=== PATIENT | female | born 1995 | race Caucasian/White ===

== ENCOUNTER 2019-08-01 15:19 | Emergency (ER) | payer OTHER ==
[2019-08-01 15:25] VITALS: BMI 23.8
[2019-08-01] MEDS ORDERED: KETOROLAC TROMETHAMINE 30 MG/1 ML VIAL IVPUSH ONE (15:41)
[2019-08-01] MEDS ORDERED: SODIUM CHLORIDE 1,000 ML IV SCH (15:45)
--- NOTE | 2019-08-01 15:50 | PDOC ---
History of Present Illness - General Chief Complaint: Urinary Problem Stated Complaint: FEVER / UTI Time Seen by Provider: 08/01/19 15:23 History Source: Patient Exam Limitations: No Limitations - History of Present Illness Quality: reports: moderate, sharpness Abdominal Pain Onset Location: reports: flank Past History - Travel Traveled outside of the country in the last 30 days: No Close contact w/someone who was outside of country & ill: No - Past Medical History Allergies/Adverse Reactions: Allergies Allergy/AdvReac Type Severity Reaction Status Date / Time Penicillins Allergy Severe Difficulty Verified 08/01/19 15:24 Breathing NUTS Allergy Swelling Uncoded 08/01/19 15:24 Home Medications: Ambulatory Orders Vitamins (Sjr) - 1 tab PO DAILY 06/21/15 Ibuprofen [Motrin -] 800 mg PO TID #30 tablet 07/17/15 Ciprofloxacin [Cipro -] 500 mg PO Q12H 7 Days #14 tablet 08/01/19 Asthma: No Cancer: No Cardiac Disorders: No COPD: No Diabetes: No HTN: No Seizures: No Thyroid Disease: No - Suicide/Smoking/Psychosocial Hx Smoking Status: No Smoking History: Current every day smoker Have you smoked in the past 12 months: No Number of Cigarettes Smoked Daily: 0 Information on smoking cessation initiated: No Hx Alcohol Use: No Drug/Substance Use Hx: No Substance Use Type: None Hx Substance Use Treatment: No Abd/GI Specific PMHX - Complaint Specific PMHX Colitis: No Review of Systems - Review of Systems Constitutional: Yes: Chills, Fever ABD/GI: No: Abdominal Distended, Diarrhea, Nausea, Vomiting : Yes: Dysuria, Flank Pain. No: Discharge, Frequency, Hematuria, Urgency Musculoskeletal: Yes: Back Pain. No: Joint Pain *Physical Exam - Vital Signs Last Vital Signs Temp Pulse Resp BP Pulse Ox 99.9 F H 120 H 19 120/68 100 08/01/19 15:21 08/01/19 15:21 08/01/19 15:21 08/01/19 15:21 08/01/19 15:21 - Physical Exam General Appearance: Yes: Nourished Respiratory/Chest: positive: Lungs Clear, Normal Breath Sounds Cardiovascular: positive: Regular Rhythm, Regular Rate, S1, S2 Gastrointestinal/Abdominal: positive: Normal Bowel Sounds, Soft Musculoskeletal: positive: CVA Tenderness (R), CVA Tenderness (L) Integumentary: positive: Normal Color Neurologic: positive: photoengraving proofer II-XII NML intact, Fully Oriented, Alert, Normal Mood/ Affect, Normal Response, Motor Strength 03/21 ED Treatment Course - LABORATORY CBC & Chemistry Diagram: 08/01/19 16:05 08/01/19 16:05 Medical Decision Making - Medical Decision Making 08/01/19 15:48 Patient is a 24 years old female with bilateral flank pain left greater than right fever dysuria or for a few days now. Patient reports she was seen at [facility] emergency room over the course of 2wks for UTI. She tx for UTI a week ago, she then presented yesterday for flank pain, she reports she received IV abx for urine infection and was d/c home with po. 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 Denies any nausea vomiting and her last bowel movement was 3 days ago. Patient was consistent with bilateral CVA tenderness left greater than right patient does have mild suprapubic tenderness. concern for pylenonepheritis she is tachycardiac low-grade fever in the ER. Routine labs UA fluids sent 08/01/19 16:00 08/01/19 17:59 pt reassessed after IVF, she feels much better labs reviewed: slightly elevated wbc at 11K, cr ok, pt stable vss improved, pain resolved cipro given d/c with instruction to f/u urology *DC/Admit/Observation/Transfer Diagnosis at time of Disposition: Pyelonephritis - Discharge Dispostion Disposition: HOME Condition at time of disposition: Stable - Prescriptions Prescriptions: Ciprofloxacin [Cipro -] 500 mg PO Q12H 7 Days #14 tablet - Referrals Referrals: Molly Kauffman SGingerAGinger [Other Staff,non-medical] - - Patient Instructions Printed Discharge Instructions: DI for Kidney Infection Additional Instructions: Please follow-up urology, increase fluids Please finish antibiotics as prescribed Return to the emergency room if worsening symptoms occurs. - Post Discharge Activity Forms/Work/School Notes: Back to Work
[2019-08-01] MEDS ORDERED: KETOROLAC TROMETHAMINE 30 MG/1 ML VIAL ONE (16:04)
[2019-08-01 16:05] LABS: EPI CELLS 7.1 /HPF (0-5/HPF); HYALINE CASTS 93 /lpf (0-8); PH,URINE 6.5 (5.0-8.0); URINE APPEARANCE CLOUDY; URINE BACTERIA 149.9 /hpf (NEGATIVE); URINE BILIRUBIN NEGATIVE (NEGATIVE); URINE COLOR YELLOW; URINE GLUCOSE (UA) NEGATIVE (NEGATIVE); URINE KETONE NEGATIVE (NEGATIVE); URINE LEUK ESTERASE 2+ (NEGATIVE); URINE NITRITE NEGATIVE (NEGATIVE); URINE PROTEIN 1+ (NEGATIVE); URINE WBC 151 /hpf (0-5)
[2019-08-01 16:12] LABS: HEMATOCRIT 36.5 % (32.4-45.2); HEMOGLOBIN 12.3 GM/dL (10.7-15.3); MCH 30.3 pg (25.7-33.7); MCHC 33.7 g/dl (32.0-36.0); MEAN CELL VOLUME 90.2 fl (80-96); MEAN PLT VOLUME 8.3 fl (7.5-11.1); PLATELET COUNT 211 K/MM3 (134-434); RBC 4.05 M/mm3 (3.60-5.2); RDW 11.9 % (11.6-15.6); WHITE BLOOD COUNT 11.4 K/mm3 (4.0-10.0)
[2019-08-01 16:46] LABS: ALBUMIN 3.4 g/dl (3.4-5.0); BILIRUBIN,TOTAL 0.5 mg/dL (0.2-1); CALCIUM 8.3 mg/dL (8.5-10.1); CREATININE 0.8 mg/dL (0.55-1.3); POTASSIUM 3.8 mmol/L (3.5-5.1); TOT PROT 6.9 g/dl (6.4-8.2)
[2019-08-01 17:24] VITALS: BP 126/61; PULSE 89; TEMP 98.6
[2019-08-01] MEDS ORDERED: CIPROFLOXACIN 500 MG TABLET (RESTRICTED TO ID) PO ONE (17:27)
[2019-08-01 17:58] LABS: URINE RBC 16.5 /hpf (0-4); YEAST NONE SEEN (NEGATIVE)
== END 2019-08-01 17:57 | disposition home or self-care (01) ==
LOC: JERFT 15:19
PROC: 3E0337Z Introduction of Electrolytic and Water Balance Substance into Peripheral Vein, Percutaneous Approach (ICD-10-PCS; principal; 2019-08-01)
PROC: 3E0333Z Introduction of Anti-inflammatory into Peripheral Vein, Percutaneous Approach (ICD-10-PCS; 2019-08-01)
DX: N12 Tubulo-interstitial nephritis, not specified as acute or chronic (principal)
CPT/HCPCS: 36415; 80053; 81003; 84703; 85027; 87086; 96361; 96374; 99282-25; J7030

== ENCOUNTER 2019-08-03 13:05 | Emergency (ER) | payer OTHER ==
[2019-08-03 13:15] VITALS: BP 125/71; PULSE 71; TEMP 98.4; BMI 23.8
[2019-08-03] MEDS ORDERED: KETOROLAC TROMETHAMINE 30 MG/1 ML VIAL IVPUSH ONE (14:57)
[2019-08-03] MEDS ORDERED: ONDANSETRON 4 MG/2 ML VIAL IVPUSH ONE (14:57)
[2019-08-03] MEDS ORDERED: PANTOPRAZOLE SODIUM 40 MG in SODIUM CHLORIDE 100 ML IVPB ONE (14:57)
[2019-08-03] MEDS ORDERED: SODIUM CHLORIDE 1,000 ML IV STA (14:58)
[2019-08-03] MEDS ORDERED: KETOROLAC TROMETHAMINE 30 MG/1 ML VIAL ONE (15:01)
[2019-08-03] MEDS ORDERED: ONDANSETRON 4 MG/2 ML VIAL ONE (15:02)
[2019-08-03] MEDS ORDERED: PANTOPRAZOLE SODIUM 40 MG VIAL ONE (15:02)
[2019-08-03 15:20] LABS: BASO % 0.7 % (0-2.0); EOS % 1.6 % (0-4.5); HEMATOCRIT 37.5 % (32.4-45.2); HEMOGLOBIN 12.8 GM/dL (10.7-15.3); LYMPH % 24.6 % (8-40); MCHC 34.2 g/dl (32.0-36.0); MEAN CELL VOLUME 90.6 fl (80-96); MEAN PLT VOLUME 9.4 fl (7.5-11.1); MONO % 14.7 % (3.8-10.2); NEUT % 58.4 % (42.8-82.8); PLATELET COUNT 271 K/MM3 (134-434); RBC 4.14 M/mm3 (3.60-5.2); RDW 12.2 % (11.6-15.6); WHITE BLOOD COUNT 8.3 K/mm3 (4.0-10.0)
[2019-08-03 16:01] LABS: BILIRUBIN,TOTAL 0.4 mg/dL (0.2-1); BLOOD UREA NITROGEN 7.4 mg/dL (7-18); CALCIUM 9.6 mg/dL (8.5-10.1); CREATININE 0.7 mg/dL (0.55-1.3); MAGNESIUM 2.3 mg/dL (1.8-2.4); POTASSIUM 3.9 mmol/L (3.5-5.1); TOT PROT 8.2 g/dl (6.4-8.2)
--- NOTE | 2019-08-03 16:06 | PDOC ---
History of Present Illness - General Chief Complaint: Pain Stated Complaint: ABD PAIN Time Seen by Provider: 08/03/19 13:24 History Source: Patient Exam Limitations: No Limitations - History of Present Illness Travel History: No Initial Comments: 08/03/19 15:09 24 y/o female presents to the ED with n/v and upper abd sharp pain x 4 days. Pt denies fever, headache, chills, diarrhea, or recent travel. Pt states seen here 2 days ago and placed on cipro for uti. pt states unable to tolerate solids but able to drink fluids. Pt states smokes marijuana daily and denies previous s/s Timing/Duration: reports: constant Quality: reports: moderate, sharpness Abdominal Pain Onset Location: reports: epigastric Pain Radiation: reports: no radiation Activities at Onset: reports: none Aggravating Factors: improves with: None Alleviating Factors: improves with: None Past History - Travel Traveled outside of the country in the last 30 days: No Close contact w/someone who was outside of country & ill: No - Past Medical History Allergies/Adverse Reactions: Allergies Allergy/AdvReac Type Severity Reaction Status Date / Time Penicillins Allergy Severe Difficulty Verified 08/01/19 15:24 Breathing NUTS Allergy Swelling Uncoded 08/01/19 15:24 Home Medications: Ambulatory Orders Vitamins (Sjr) - 1 tab PO DAILY 06/21/15 Ibuprofen [Motrin -] 800 mg PO TID #30 tablet 07/17/15 Ciprofloxacin [Cipro -] 500 mg PO Q12H 7 Days #14 tablet 08/01/19 Asthma: No Cancer: No Cardiac Disorders: No COPD: No Diabetes: No HTN: No Seizures: No Thyroid Disease: No - Suicide/Smoking/Psychosocial Hx Smoking Status: No Smoking History: Never smoked Have you smoked in the past 12 months: No Number of Cigarettes Smoked Daily: 0 Information on smoking cessation initiated: No Hx Alcohol Use: No Drug/Substance Use Hx: No Substance Use Type: None Hx Substance Use Treatment: No Patient Lives Alone: No Lives with/in: parents Abd/GI Specific PMHX - Complaint Specific PMHX Colitis: No Review of Systems - Review of Systems Able to Perform ROS?: Yes Constitutional: Yes: Weakness (mild generalized) Respiratory: Yes: Cough ABD/GI: Yes: Nausea, Vomiting, Abdominal cramping. No: Poor Appetite, Poor Fluid Intake, Indigestion Musculoskeletal: No: Symptoms Reported Integumentary: No: Symptoms Reported Neurological: No: Symptoms reported Hematologic/Lymphatic: No: Symptoms Reported *Physical Exam - Vital Signs Last Vital Signs Temp Pulse Resp BP Pulse Ox 98.4 F 71 16 125/71 100 08/03/19 13:14 08/03/19 13:14 08/03/19 13:14 08/03/19 13:14 08/03/19 13:14 - Physical Exam General Appearance: Yes: Nourished, Appropriately Dressed. No: Apparent Distress HEENT: positive: EOMI, JONATHAN, TMs Normal, Pharynx Normal. negative: Pale Conjunctivae Neck: positive: Normal Thyroid, Supple Respiratory/Chest: positive: Lungs Clear, Normal Breath Sounds. negative: Respiratory Distress, Accessory Muscle Use Cardiovascular: positive: Regular Rhythm, Regular Rate. negative: Murmur Gastrointestinal/Abdominal: positive: Soft, Tenderness (luq/epigastric/ruq) Musculoskeletal: negative: CVA Tenderness Extremity: positive: Normal Inspection Integumentary: positive: Normal Color, Warm, Moist Neurologic: positive: Normal Mood/Affect (anxious), Motor Strength 5/5 ( ambulatory) ED Treatment Course - LABORATORY CBC & Chemistry Diagram: 08/03/19 15:14 08/03/19 15:14 - ADDITIONAL ORDERS Additional order review: 08/03/19 15:14 RBC 4.14 MCV 90.6 MCHC 34.2 RDW 12.2 MPV 9.4 D Neutrophils % 58.4 Lymphocytes % 24.6 Monocytes % 14.7 H Eosinophils % 1.6 Basophils % 0.7 - RADIOLOGY Radiology Studies Ordered: Category Date Time Status ABDOMEN US -LIMITED [US] Stat Ultrasound 08/03/19 14:58 Ordered - Medications Given in the ED: ED Medications Discontinued Medications Generic Name Dose Route Start Last Admin Trade Name Freq PRN Reason Stop Dose Admin Pantoprazole Sodium 40 mg/ 100 mls @ 200 mls/hr 08/03/19 14:57 08/03/19 15:11 Sodium Chloride IVPB 08/03/19 15:26 200 mls/hr ONCE ONE Administration Sodium Chloride 1,000 mls @ 1,000 mls/hr 08/03/19 14:58 08/03/19 15:11 Normal Saline - IV 08/03/19 15:57 1,000 mls/hr ASDIR STA Administration Ketorolac Tromethamine 30 mg 08/03/19 14:57 08/03/19 15:11 Toradol Injection - IVPUSH 08/03/19 14:58 30 mg ONCE ONE Administration Ondansetron HCl 4 mg 08/03/19 14:57 08/03/19 15:11 Zofran Injection IVPUSH 08/03/19 14:58 4 mg ONCE ONE Administration Medical Decision Making - Medical Decision Making 08/03/19 15:10 CC: upper abdominal pain for the past few days associated nausea and vomiting and poor solid intake. Exam. Patient with left upper quadrant epigastric and right upper quadrant tenderness. Vital signs stable. Plan labs, urine, antiemetics, Toradol, IV fluids and ultrasound of the abdomen ordered 08/03/19 16:12 Laboratory Tests 08/03/19 08/03/19 15:14 15:14 WBC 8.3 Hgb 12.8 Hct 37.5 Neutrophils % 58.4 Lymphocytes % 24.6 Monocytes % 14.7 H Sodium 140 Potassium 3.9 Chloride 106 Carbon Dioxide 26 Anion Gap 9 BUN 7.4 Creatinine 0.7 Random Glucose 83 Calcium 9.6 Magnesium 2.3 Total Bilirubin 0.4 AST 26 ALT 24 Alkaline Phosphatase 71 Total Protein 8.2 Albumin 4.0 Lipase 46 L 08/03/19 17:11 Ultrasound shows no acute findings. Patient states feeling better. Urine pending. 08/03/19 17:45 Patient requesting to go home. Will call patient with results of urine. Patient also requesting something for nausea and upper abdominal pain. Patient be prescribed Zofran and protonix along receiving a work note. *DC/Admit/Observation/Transfer Diagnosis at time of Disposition: Epigastric abdominal pain - Discharge Dispostion Disposition: HOME Condition at time of disposition: Improved - Referrals - Patient Instructions Printed Discharge Instructions: DI for Epigastric Pain Additional Instructions: Take Protonix as prescribed starting tomorrow and zofran as needed starting tonight Please avoid spicy greasy and fried food at this may aggravate your symptoms. Please avoid smoking of all kind. Return to ED if symptoms worsen - Post Discharge Activity Forms/Work/School Notes: Back to Work
[2019-08-03 18:12] LABS: EPI CELLS 9.6 /HPF (0-5/HPF); HYALINE CASTS 12 /lpf (0-8); PH,URINE 8.5 (5.0-8.0); URINE APPEARANCE CLEAR; URINE BACTERIA 74.9 /hpf (NEGATIVE); URINE BILIRUBIN NEGATIVE (NEGATIVE); URINE COLOR YELLOW; URINE GLUCOSE (UA) NEGATIVE (NEGATIVE); URINE KETONE NEGATIVE (NEGATIVE); URINE LEUK ESTERASE 1+ (NEGATIVE); URINE NITRITE NEGATIVE (NEGATIVE); URINE PROTEIN NEGATIVE (NEGATIVE); URINE RBC 5 /hpf (0-4); URINE UROBILINOGEN 0.2 mg/dL (0.2-1.0); URINE WBC 16 /hpf (0-5)
== END 2019-08-03 17:51 | disposition home or self-care (01) ==
LOC: JER 13:05
PROC: 3E033GC Introduction of Other Therapeutic Substance into Peripheral Vein, Percutaneous Approach (ICD-10-PCS; principal; 2019-08-03)
PROC: 3E0333Z Introduction of Anti-inflammatory into Peripheral Vein, Percutaneous Approach (ICD-10-PCS; 2019-08-03)
PROC: 3E033GC Introduction of Other Therapeutic Substance into Peripheral Vein, Percutaneous Approach (ICD-10-PCS; 2019-08-03)
DX: R10.10 Upper abdominal pain, unspecified (principal); Z87.440 Personal history of urinary (tract) infections; Z79.2 Long term (current) use of antibiotics
CPT/HCPCS: 36415; 76705-TC; 80053; 81003; 83690; 83735; 85025; 87077; 87086; 96365; 96375; 99281-25; J7030

== ENCOUNTER 2020-01-08 18:12 | Emergency (ER) | payer OTHER ==
[2020-01-08 18:23] VITALS: BP 120/70; PULSE 104; TEMP 97.8; BMI 23.8
--- NOTE | 2020-01-08 20:34 | PDOC ---
History of Present Illness - General Chief Complaint: Pain Stated Complaint: 7 WEEKS /PAIN/DIZZY Time Seen by Provider: 01/08/20 19:24 History Source: Patient Exam Limitations: No Limitations Past History - Past Medical History Allergies/Adverse Reactions: Allergies Allergy/AdvReac Type Severity Reaction Status Date / Time Penicillins Allergy Severe Difficulty Verified 08/01/19 15:24 Breathing NUTS Allergy Swelling Uncoded 08/01/19 15:24 Home Medications: Ambulatory Orders Vitamins (Sjr) - 1 tab PO DAILY 06/21/15 Ibuprofen [Motrin -] 800 mg PO TID #30 tablet 07/17/15 Ciprofloxacin [Cipro -] 500 mg PO Q12H 7 Days #14 tablet 08/01/19 Ondansetron HCl [Zofran] 4 mg PO TID PRN #12 tablet 08/03/19 Pantoprazole Sodium [Protonix] 40 mg PO DAILY #30 tablet. 08/03/19 Asthma: No Cancer: No Cardiac Disorders: No COPD: No Diabetes: No HTN: No Seizures: No Thyroid Disease: No - Psycho Social/Smoking Cessation Hx Smoking Status: No Smoking History: Never smoked Have you smoked in the past 12 months: No Number of Cigarettes Smoked Daily: 0 Information on smoking cessation initiated: No Hx Alcohol Use: No Drug/Substance Use Hx: No Substance Use Type: None Hx Substance Use Treatment: No *Physical Exam - Vital Signs Last Vital Signs Temp Pulse Resp BP Pulse Ox 97.8 F 104 H 18 120/70 100 01/08/20 18:16 01/08/20 18:16 01/08/20 18:16 01/08/20 18:16 01/08/20 18:16 - Physical Exam General Appearance: No: Apparent Distress Respiratory/Chest: positive: Lungs Clear, Normal Breath Sounds. negative: Respiratory Distress Cardiovascular: positive: Regular Rhythm, Regular Rate, S1, S2. negative: Murmur Gastrointestinal/Abdominal: positive: Normal Bowel Sounds, Soft. negative: Tender, Distended, Guarding, Rebound Neurologic: positive: Alert ED Treatment Course - RADIOLOGY Radiology Studies Ordered: Category Date Time Status <14WKS US [US] Stat Ultrasound 01/08/20 19:29 Ordered Medical Decision Making - Medical Decision Making 24 y/o F with no sig pmh , currently 7 weeks , presents with pelvic cramps from yesterday. Denies fever, sob, cp, abd pain, n/v/d, urinary sxs, vaginal bleeding. R/O ectopic Patient was pending to have labs drawn when she was noted by nurse to have eloped the ED 01/08/20 20:34 Discharge - Discharge Information Problems reviewed: Yes Clinical Impression/Diagnosis: Pelvic pain Disposition: ELOPED - Follow up/Referral - Patient Discharge Instructions - Post Discharge Activity
== END 2020-01-08 20:45 | disposition left against medical advice (07) ==
LOC: JER 18:12
DX: O26.891 Other specified pregnancy related conditions, first trimester (principal); R10.2 Pelvic and perineal pain; Z3A.01 Less than 8 weeks gestation of pregnancy
CPT/HCPCS: 99281-25

== ENCOUNTER 2020-01-15 11:51 | Emergency (ER) | payer OTHER ==
[2020-01-15 12:19] VITALS: TEMP 97.9; BMI 23.8
[2020-01-15] MEDS ORDERED: SODIUM CHLORIDE 1,000 ML IV STA (13:15)
--- NOTE | 2020-01-15 14:10 | PDOC ---
History of Present Illness - General Chief Complaint: Vaginal Bleeding Stated Complaint: DIZINESS, VOMITING Time Seen by Provider: 01/15/20 13:03 History Source: Patient - History of Present Illness Initial Comments: 01/15/20 14:02 Ms. Pineda is a 24 y/o woman at 8 weeks gestation by LMP not yet confirmed by US w/no PMH p/w three weeks of weakness, lightheadedness. She reports that for the last several weeks she has noted worsening lightheadedness with ambulation, worse when going from sitting to standing position. She denies any syncope, near syncope, chest pain, shortness of breath. She denies any complications during her first . She has not seen an slat grader during this and does not have a PCP. She reports 1x nbnb vomiting today and a small amount of vaginal spotting afterwards. She denies any abdominal or pelvic pain or discomfort, or dysuria/hematuria/change in urination. Past History - Past Medical History Allergies/Adverse Reactions: Allergies Allergy/AdvReac Type Severity Reaction Status Date / Time Penicillins Allergy Severe Difficulty Verified 01/15/20 12:19 Breathing NUTS Allergy Swelling Uncoded 01/15/20 12:19 Home Medications: Ambulatory Orders Vitamins (Sjr) - 1 tab PO DAILY 06/21/15 Asthma: No Cancer: No Cardiac Disorders: No COPD: No Diabetes: No HTN: No Seizures: No Thyroid Disease: No - Reproductive History Is Patient Now?: Yes (#): 2 Para: 1 - Psycho Social/Smoking Cessation Hx Smoking Status: No Smoking History: Never smoked Have you smoked in the past 12 months: No Number of Cigarettes Smoked Daily: 0 Hx Alcohol Use: No Drug/Substance Use Hx: No Substance Use Type: None Hx Substance Use Treatment: No Review of Systems - Review of Systems Able to Perform ROS?: Yes Comments:: 01/15/20 14:10 ROS: GENERAL/CONSTITUTIONAL: No fever or chills. No weakness. HEAD, EYES, EARS, NOSE AND THROAT: No change in vision. No ear pain or discharge. No sore throat. CARDIOVASCULAR: No chest pain or shortness of breath RESPIRATORY: No cough, wheezing, or hemoptysis. GASTROINTESTINAL: No nausea, vomiting, diarrhea or constipation. GENITOURINARY: No dysuria, frequency, or change in urination. MUSCULOSKELETAL: No joint or muscle swelling or pain. No neck or back pain. SKIN: No rash NEUROLOGIC: Lightheadedness. No headache, vertigo, loss of consciousness, or change in strength/sensation. ENDOCRINE: No increased thirst. No abnormal weight change HEMATOLOGIC/LYMPHATIC: No anemia, easy bleeding, or history of blood clots. ALLERGIC/IMMUNOLOGIC: No hives or skin allergy. *Physical Exam - Vital Signs Last Vital Signs Temp Pulse Resp BP Pulse Ox 97.9 F 83 16 97/63 97 01/15/20 12:17 01/15/20 12:17 01/15/20 12:17 01/15/20 12:17 01/15/20 12:17 - Physical Exam 01/15/20 14:11 PE: GENERAL: Awake, alert, and fully oriented, in no acute distress HEAD: No signs of trauma, normocephalic, atraumatic EYES: PERRLA, EOMI, sclera anicteric, conjunctiva clear ENT: Auricles normal inspection, hearing grossly normal, nares patent, oropharynx clear without exudates. Moist mucosa NECK: Normal ROM, supple, no lymphadenopathy, JVD, or masses LUNGS: No distress, speaks full sentences, clear to auscultation bilaterally HEART: Regular rate and rhythm, normal S1 and S2, no murmurs, rubs or gallops, peripheral pulses normal and equal bilaterally. ABDOMEN: Soft, nontender, normoactive bowel sounds. No guarding, no rebound. No masses EXTREMITIES : Normal inspection, Normal range of motion, no edema. No clubbing or cyanosis NEUROLOGICAL: Cranial nerves II through XII grossly intact. Normal speech, normal gait, no focal sensorimotor deficits SKIN: Warm, Dry, normal turgor, no rashes or lesions noted ED Treatment Course - LABORATORY CBC & Chemistry Diagram: 01/15/20 14:10 01/15/20 14:10 Medical Decision Making - Medical Decision Making 01/15/20 14:11 24F @ 8 weeks gestation by LMP p/w lightheadedness for 3-4 weeks. Ddx includes anemia, electrolyte derangement given weakness. Ectopic also possible given pelvic pain, although pain is mild and intermittent. Plan: CBC CMP UA Urine culture Beta hcg quant Type and screen Abdominal US bedside US formal Dispo: Discharge 01/15/20 14:14 Discharge - Discharge Information Problems reviewed: Yes Clinical Impression/Diagnosis: Vaginal bleeding Condition: Stable Disposition: HOME - Admission No - Follow up/Referral Referrals: Spencer Ching MD [Staff Physician] - - Patient Discharge Instructions Patient Printed Discharge Instructions: DI for Threatened Additional Instructions: You were seen in the ER for vaginal bleeding and lightheadedness. Your bloodwork was normal. Your ultrasound showed a small amount of blood in the uterus. The heart rate was 115 - slower than we would expect at this stage, as discussed. Please be sure to follow up with slat grader as soon as possible, in the next 2-3 days. Please return to the ER if you develop fevers, bleeding more than 4 pads in one hour, chest pain, shortness of breath, weakness. - Post Discharge Activity Work/Back to School Note: Back to Work
[2020-01-15 14:25] LABS: BASO % 0.3 % (0-2.0); EOS % 1.8 % (0-4.5); HEMATOCRIT 36.2 % (32.4-45.2); HEMOGLOBIN 12.7 GM/dL (10.7-15.3); LYMPH % 20.6 % (8-40); MEAN CELL VOLUME 88.6 fl (80-96); MONO % 8.1 % (3.8-10.2); NEUT % 69.2 % (42.8-82.8); PLATELET COUNT 270 K/MM3 (134-434); RBC 4.09 M/mm3 (3.60-5.2); RDW 12.5 % (11.6-15.6); WHITE BLOOD COUNT 10.8 K/mm3 (4.0-10.0)
--- NOTE | 2020-01-15 14:43 | PDOC ---
Documentation entered by Julio César Cary SCRIBE, acting as scribe for Karan Cason MD. Karan Cason MD: This documentation has been prepared by the Luis Daniel hendricks Daniel, SCRIBE, under my direction and personally reviewed by me in its entirety. I confirm that the documentation accurately reflects all work, treatment, procedures, and medical decision making performed by me. Attending Attestation - Resident Resident Name: JeanniereeseMikel - ED Attending Attestation I have performed the following: I have examined & evaluated the patient, The case was reviewed & discussed with the resident, I agree w/resident's findings & plan, Exceptions are as noted - HPI HPI: 01/15/20 14:27 The patient is a 24 year old female with no past medical history here today for evaluation of vaginal spotting. The patient reports that she noticed 3-4 drops of blood in her underwear today and that she is 8 weeks by LMP. She also reports that she has had 3-4 weeks of intermittent pelvic cramping that feels like her menstrual pain and lightheadedness that is worse on exertion. She also states that she hasn't had an ultrasound to confirm her . Patient denies headache. Denies fever, chills. Denies chest pain, shortness of breath. Denies nausea, vomiting, diarrhea, abdominal pain. Allergies: penicillins, nuts - Physicial Exam PE: 01/15/20 14:31 Vitals: Triage vital signs reviewed General Appearance: No acute distress, well nourished, well developed Head: Atraumatic Neck: Supple; No nuchal rigidity Chest Wall: Nontender Cardiac: Regular rate and rhythm, no murmurs, no rubs, no gallops Lungs: Clear to auscultation bilateral, good air movement bilaterally Abdomen: Soft, nondistended, normal bowel sounds, nontender to palpation Extremities: Full range of motion to all extremities, no cyanosis, clubbing, or edema Skin: Warm and dry, no rashes or lesions, no rash, no petechiae Neuro: AOX3 Psych: Normal mood, normal affect - Medical Decision Making 01/15/20 16:39 History and examination consistent with threatened findings discussed with patient 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
[2020-01-15 14:54] LABS: ALBUMIN 3.5 g/dl (3.4-5.0); BILIRUBIN,TOTAL 0.3 mg/dL (0.2-1); BLOOD UREA NITROGEN 11.1 mg/dL (7-18); CALCIUM 8.5 mg/dL (8.5-10.1); CREATININE 0.5 mg/dL (0.55-1.3); POTASSIUM 3.6 mmol/L (3.5-5.1); TOT PROT 7.1 g/dl (6.4-8.2)
[2020-01-15 17:27] VITALS: BP 124/76; PULSE 80
== END 2020-01-15 17:27 | disposition home or self-care (01) ==
LOC: JER 11:51
PROC: 3E0337Z Introduction of Electrolytic and Water Balance Substance into Peripheral Vein, Percutaneous Approach (ICD-10-PCS; principal; 2020-01-15)
DX: O26.891 Other specified pregnancy related conditions, first trimester (principal); O20.0 Threatened abortion; Z3A.01 Less than 8 weeks gestation of pregnancy
CPT/HCPCS: 36415; 76830-TC; 80053; 84702; 85025; 86850; 86900; 86901; 96360; 99284-25; J7030

== ENCOUNTER 2020-05-18 21:29 | Emergency (ER) | payer OTHER ==
[2020-05-18 21:34] VITALS: BP 112/69; PULSE 99; TEMP 99; BMI 26.2
[2020-05-18] MEDS ORDERED: LIDOCAINE HCL 2% JELLY 10 ML CARTRIDGE ONE (23:29)
[2020-05-18] MEDS ORDERED: LIDOCAINE HCL 5% TOP OINTMENT 50 GM TUBE TP ONE (23:31)
[2020-05-18] MEDS ORDERED: AMOX TR/POT CLAV 875MG/125MG TABLETS (FP) PO ONE (23:31)
[2020-05-18] MEDS ORDERED: AMOX TR/POT CLAV 875MG/125MG TABLETS (FP) ONE (23:32)
--- NOTE | 2020-05-18 23:35 | PDOC ---
History of Present Illness - General Chief Complaint: Abscess Boil Stated Complaint: VAGINAL ABSCESS/24 WKS PREG Time Seen by Provider: 05/18/20 23:06 History Source: Patient Exam Limitations: Clinical Condition - History of Present Illness Initial Comments: 05/18/20 23:38 Patient 24 weeks with no significant past medical history present with complaint of 3 days history of abscess and pain to skin of right groin area by mons pubis. Patient reported history of ingrown hair which improved by itself but now has been having worsening symptoms and has been doing hot compresses for the past day which has not been having much improvement. Denies fever, chills, vaginal discharge, dysuria, burning urination. Denies any other symptoms Timing/Duration: reports: other (3 days) Past History - Medical History Allergies/Adverse Reactions: Allergies Allergy/AdvReac Type Severity Reaction Status Date / Time NUTS Allergy Swelling Uncoded 05/18/20 21:34 Home Medications: Ambulatory Orders Vitamins (Sjr) - 1 tab PO DAILY 06/21/15 Acetaminophen [Tylenol -] 1,000 mg PO Q6H #30 tablet 02/20/20 Metoclopramide HCl [Reglan] 10 mg PO Q8H #12 tablet 02/20/20 Amox-Tr/K Cl [Augmentin - 875Mg Tablet] 1 tab PO BID #14 tablet 05/18/20 Mupirocin Ointment [Bactroban 2% Ointment -] 1 applic TP BID #1 tube 05/18/20 Asthma: No Cancer: No Cardiac Disorders: No COPD: No Diabetes: No HTN: No Seizures: No Thyroid Disease: No - Reproductive History (#): 2 Para: 1 - Psycho-Social/Smoking History Smoking Status: No Smoking History: Never smoked Have you smoked in the past 12 months: No Number of Cigarettes Smoked Daily: 0 - Substance Abuse Hx (Audit-C & DAST Scrn) How often the patient has a drink containing alcohol: Never Score: In Men: 4 or > Positive; In Women: 3 or > Positive: 0 Screen Result (Pos requires Nsg. Audit-10AR): Negative In the last yr the pt used illegal drug/Rx for NonMed reason: No Score: Yes response is considered Positive: 0 Screen Result (Positive result requires Nsg. DAST-10): Negative Review of Systems - Review of Systems Able to Perform ROS?: Yes Is the patient limited Pakistani proficient: No Constitutional: No: Chills, Fever, Malaise HEENTM: No: Symptoms Reported, See HPI, Eye Pain, Blurred Vision, Tearing, Recent change in vision, Double Vision, Cataracts, Ear Pain, Ocular Prothesis, Ear Discharge, Nose Pain, Nose Congestion, Tinnitus, Nose Bleeding, Hearing Loss, Throat Pain, Throat Swelling, Mouth Pain, Dental Problems, Difficulty Swallowing, Mouth Swelling, Other Respiratory: No: Symptoms reported, See HPI, Cough, Orthopnea, Shortness of Breath, SOB with Exertion, SOB at Rest, Stridor, Wheezing, Productive cough, Hemoptysis, Other Cardiac (ROS): No: Symptoms Reported ABD/GI: No: Symptoms Reported, Abdominal cramping Musculoskeletal: No: Symptoms Reported Integumentary: Yes: Symptoms Reported, See HPI, Lumps (Right groin abscess) Neurological: No: Symptoms reported All Other Systems: Reviewed and Negative *Physical Exam - Vital Signs Last Vital Signs Temp Pulse Resp BP Pulse Ox 99.0 F 99 H 18 112/69 97 05/18/20 21:31 05/18/20 21:31 05/18/20 21:31 05/18/20 21:31 05/18/20 21:31 - Physical Exam 05/18/20 23:42 GENERAL: Well developed, well nourished. Awake and alert. No acute distress. NECK: Supple. Full ROM. PULMONARY: No evidence of respiratory distress. ABDOMINAL: Soft. Non-tender. 20 weeks gravid abdomen. No rebound or guarding. MUSCULOSKELETAL Normal range of motion at all joints. SKIN: Warm and dry. Normal capillary refill. 2 cm hard induration with covering fluctuant area consistent with carbuncle of right groin area by mons pubis from shaved skin area. No skin erythema. No drainage from site NEUROLOGICAL: Alert, awake, appropriate. Gait is normal without ataxia. PSYCHIATRIC: Cooperative. Good eye contact. Appropriate mood General Appearance: Yes: Nourished, Appropriately Dressed. No: Apparent Distress Medical Decision Making - Medical Decision Making 05/18/20 23:39 Patient 24 weeks with no significant past medical history present with complaint of 3 days history of abscess and pain to skin of right groin area by mons pubis. Patient reported history of ingrown hair which improved by itself but now has been having worsening symptoms and has been doing hot compresses for the past day which has not been having much improvement. Denies fever, chills, vaginal discharge, dysuria, burning urination. Denies any other symptoms Exam significant for 2 cm hard induration with covering fluctuant area consistent with carbuncle of right groin area by mons pubis from shaved skin area. No skin erythema. No drainage from site Given patient and induration being hard, will not do I&D today. Will discharge patient on Augmentin antibiotics and topical mupirocin from groin abscess advised to continue hot compresses with OB follow-up in a few days for reassessment. Patient agrees with treatment plan. Abscess area anesthetized with topical lidocaine to help with pain. Patient tolerated procedure well. Patient stable for discharge on Augmentin twice daily for a week with strict follow-up instructions Discharge - Discharge Information Problems reviewed: Yes Clinical Impression/Diagnosis: Groin abscess Condition: Stable Disposition: HOME - Admission No - Additional Discharge Information Prescriptions: Amox-Tr/K Cl [Augmentin - 875Mg Tablet] 1 tab PO BID #14 tablet Mupirocin Ointment [Bactroban 2% Ointment -] 1 applic TP BID #1 tube - Follow up/Referral Referrals: Shree Conde MD [Primary Care Provider] - - Patient Discharge Instructions Patient Printed Discharge Instructions: DI for Skin Abscess Additional Instructions: Continue with warm compress to abscess 2-3 times a day. Take prescribed antibiotics and finish them. Follow-up with your [employer] in 2 to 3 days as soon as possible for follow-up - Post Discharge Activity Work/Back to School Note: Back to Work
--- NOTE | 2020-05-19 00:38 | PDOC ---
*Physical Exam - Vital Signs Last Vital Signs Temp Pulse Resp BP Pulse Ox 99.0 F 99 H 18 112/69 97 05/18/20 21:31 05/18/20 21:31 05/18/20 21:31 05/18/20 21:31 05/18/20 21:31 ED Treatment Course - Medications Given in the ED: ED Medications Discontinued Medications Generic Name Dose Route Start Last Admin Trade Name Gabbi PRN Reason Stop Dose Admin Amoxicillin/Clavulanate Potassium 1 tab 05/18/20 23:31 05/18/20 23:35 Augmentin - 875mg Tablet PO 05/18/20 23:32 1 tab ONCE ONE Administration Lidocaine HCl 1 applic 05/18/20 23:31 05/18/20 23:35 Xylocaine 5% Top. Ointment TP 05/18/20 23:32 1 appful ONCE ONE Administration Medical Decision Making - Medical Decision Making 05/19/20 00:37 Case reviewed, agree with assessment and plan Discharge - Discharge Information Problems reviewed: Yes Clinical Impression/Diagnosis: Groin abscess Condition: Stable Disposition: HOME - Additional Discharge Information Prescriptions: Amox-Tr/K Cl [Augmentin - 875Mg Tablet] 1 tab PO BID #14 tablet Mupirocin Ointment [Bactroban 2% Ointment -] 1 applic TP BID #1 tube - Follow up/Referral Referrals: Shree Conde MD [Primary Care Provider] - - Patient Discharge Instructions Patient Printed Discharge Instructions: DI for Skin Abscess Additional Instructions: Continue with warm compress to abscess 2-3 times a day. Take prescribed antibiotics and finish them. Follow-up with your [employer] HELPER in 2 to 3 days as soon as possible for follow-up - Post Discharge Activity Work/Back to School Note: Back to Work
== END 2020-05-18 23:50 | disposition home or self-care (01) ==
LOC: JER 21:29
DX: O26.892 Other specified pregnancy related conditions, second trimester (principal); L02.214 Cutaneous abscess of groin; Z3A.24 24 weeks gestation of pregnancy
CPT/HCPCS: 99283-25

== ENCOUNTER 2020-08-31 10:05 | Inpatient (IN) | payer OTHER ==
--- OUTSIDE RECORDS SUMMARY | 2020-08-31 10:35 | XMS ---
:1995 Author Organization [facility] Care Team Providers Name Role Phone ED STAFF PHYSICIAN Unavailable Unavailable RASHIDA GARCIA Unavailable Unavailable RIOS Franklin Unavailable Unavailable ED STAFF PHYSICIAN Unavailable Unavailable Re-disclosure Warning The records that you are about to access may contain information from federally- assisted alcohol or drug abuse programs. If such information is present, then the following federally mandated warning applies: This information has been disclosed to you from records protected by federal confidentiality rules (42 CFR part 2). The federal rules prohibit you from making any further disclosure of this information unless further disclosure is expressly permitted by the written consent of the person to whom it pertains or as otherwise permitted by 42 CFR part 2. A general authorization for the release of medical or other information is NOT sufficient for this purpose. The Federal rules restrict any use of the information to criminally investigate or prosecute any alcohol or drug abuse patient.The records that you are about to access may contain highly sensitive health information, the redisclosure of which is protected by Article 27-F of the [facility] Public Health law. If you continue you may haveaccess to information: Regarding HIV / AIDS; Provided by facilities licensed or operated by the [facility] Office of Mental Health; or Provided by the [facility] Office for People With Developmental Disabilities. If such information is present, then the following [facility] mandated warning applies: This information has been disclosed to you from confidential records which are protected by state law. State law prohibits you from making any further disclosure of this information without the specific written consent of the person to whom it pertains, or as otherwise permitted by law. Any unauthorized further disclosure in violation of state law may result in a fine or intermediate sentence or both. A general authorization for the release of medical or other information is NOT sufficient authorization for further disclosure. Encounters Encounter Providers Location Date Indications Data Source(s ) Emergency Attender: CLARIBEL Clinton 01/04/2020 [facility] RIOS [place] 04:42:00 PM EST Medic al Center CAttender: STAFF ED - 01/04/2020 STAFF 07:01:00 PM EST PHYSICIANAdmitter: CLARIBEL Franklin Patient discharged. Emergency Attender: ED STAFF H 12/25/2019 02:04:00 PM [facility] PHYSICIANAttender: STAFF ED EST - 12/25/2019 [facility] [place] STAFF PHYSICIANAdmitter: ED 05:46:00 PM EST STAFF PHYSICIAN Patient discharged. Outpatient Attender: RADHA 08/26/2019 06:00:00 AM [facility] RASHIDA DAdmitter: [facility] RASHIDA GARCIA Emergency H 07/31/2019 01:51:00 PM EDT - [address] [place] [address] 09:47:00 PM EDT Patient discharged. Emergency H 07/19/2019 07:29:00 PM EDT - [address] [place] [address] 09:21:00 PM EDT Patient discharged. Emergency H 07/12/2019 09:43:00 PM EDT - [address] [place] [address] 01:35:00 AM EDT Patient discharged. Insurance Providers Payer name Policy type Policy ID Covered Covered alliance party's Policy P carlos / Coverage alliance party ID relationship to [employer] ormation type [place] [id number] [place] [id number] HMO MVP/HHP O [id number] 01 [id number] 000 O MEDICAID [id number] SP [id number] MVP/HHP O [id number] 01 [id number] 000 Problems, Conditions, and Diagnoses Code Display Name Description Problem Type Effective Dates Data Source(s) Z3A.00 Weeks of WEEKS OF Diagnosis 01/04/2020 [facility] gestation of GESTATION OF 04:42:00 PM EST Medic al Center not NOT specified SPECIFIED Z34.90 Encounter for ENCNTR FOR Diagnosis 01/04/2020 [facility] supervision of SUPRN OF NORMAL 04:42:00 PM [email or web address] [place] normal , , UNSP, unspecified, UNSP TRIMESTER unspecified trimester Z04.89 ENCOUNTER FOR ENCOUNTER FOR Diagnosis 01/04/2020 [facility] EXAMINATION AND EXAMINATION AND 04:42:00 PM [facility] [place] OBSERVATION FOR OBSERVATION FOR OTH REASONS OTH REASONS O23.41 Unspecified UNSP INFCT OF Diagnosis 12/25/2019 [facility] infection of [facility]IN[facility] TRACT [facility]:04[facility] [place] [facility] in , FIRST , first TRIMESTER trimester Z32.00 Encounter for ENCOUNTER FOR Diagnosis 12/25/2019 [facility] test, TEST, 02:04:00 PM EST [facility] [place] result unknown RESULT UNKNOWN 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, not AL NEPHRITIS, NOT 01:51:00 PM EDT Medical Center specified as SPCF ACUTE OR acute or chronic CHRONIC N95.1 Menopausal and MENOPAUSAL AND Diagnosis 07/31/2019 [facility] female FEMALE 01:51:00 PM EDT Medical C enter climacteric CLIMACTERIC states STATES M62.830 Muscle spasm of MUSCLE SPASM OF Diagnosis 07/19/2019 [facility] back BACK 07:29:00 PM EDT Medical C enter M54.9 Dorsalgia, DORSALGIA, Diagnosis 07/19/2019 [facility] unspecified UNSPECIFIED 07:29:00 PM EDT Medical Center M79.18 MYALGIA, OTHER MYALGIA, OTHER Diagnosis 07/12/2019 [facility] SITE SITE 09:43:00 PM EDT Medical C enter Results ID Date Data Source Urinalysis.[id number] 12/25/2019 02:20:00 PM EST [facility] 0 Name Value Range Interpretation Description Data Sup porting Code Source(s) Document(s ) Glucose NEGATIVE <content [facility] [Mass/volume] styleCode="[facility] in Urine by d">Urine Medical Test strip Glucose Center </content>NEGA TIVE MG/DL<content styleCode="Mulu lics"> (NEGATIVE MG/DL)</conten t> UNK CLEAR <content [facility] styleCode="[facility] d">Urine Medical Clarity Center </content>CHRISTOPHER R <content styleCode="Mulu lics"> (CLEAR )</content> Color of Urine YELLOW <content [facility] styleCode="[facility] d">Color, Medical Urine Center </content>YELL OW <content styleCode="Mulu lics"> (YELLOW )</content> UNK NEGATIVE <content [facility] styleCode="[facility] d">Urine Medical Bilirubin Center </content>NEGA TIVE <content styleCode="Mulu lics"> (NEGATIVE )</content> Ketones NEGATIVE <content [facility] [Mass/volume] styleCode="[facility] in Urine by d">Urine Medical Test strip Ketone Center </content>NEGA TIVE MG/DL<content styleCode="Mulu lics"> (NEGATIVE MG/DL)</conten t> Specific 1.015-1.02 <content [facility] gravity of 5 styleCode="[facility] Urine by Test d">Urine Medical strip Specific Center [place] </content>1.02 0 <content styleCode="Mulu lics"> (1.015-1.025 )</content> pH of Urine by 4.5-8.0 <content [facility] Test strip styleCode="[facility] Monroes d">Urine pH Medical </content>7.0 Center <content styleCode="Mulu lics"> (4.5-8.0 )</content> Hemoglobin NEGATIVE <content [facility] [Presence] in styleCode="[facility] Monroes Urine by Test d">Urine Blood Medical strip </content>NEGA Center TIVE <content styleCode="Mulu lics"> (NEGATIVE )</content> Protein NEGATIVE <content [facility] [Mass/volume] styleCode="[facility] in Urine by d">Urine Medical Test strip Protein Center </content>NEGA TIVE MG/DL<content styleCode="Mulu lics"> (NEGATIVE MG/DL)</conten t> UNK 0-3 <content [facility] styleCode="[facility] d">Urine Red Medical Blood Cell Center </content>0-3 HPF<content styleCode="Mulu lics"> (0-3 HPF)</content> Urobilinogen 0.2-1.0 <content [facility] [Units/volume] styleCode="[facility]es in Urine by d">Urine Medical Test strip Urobilinogen Center </content>0.2 MG/DL<content styleCode="Mulu lics"> (0.2-1.0 MG/DL)</conten t> Leukocyte NEGATIVE <content [facility] esterase styleCode="[facility] [Presence] in d">Urine Medical Urine by Test Leukocyte Center strip </content>SMAL L <content styleCode="Mulu lics"> (NEGATIVE )</content> Nitrite NEGATIVE <content [facility] [Presence] in styleCode="[facility] Urine by Test d">Urine Medical strip Nitrite Center </content>POSI TIVE <content styleCode="Mulu lics"> (NEGATIVE )</content> UNK NONE SEEN <content [facility] styleCode="[facility] d">Epithelial Medical Cell Center </content>2-5 HPF<content styleCode="Mulu lics"> (NONE SEEN HPF)</content> UNK NEGATIVE <content [facility] styleCode="[facility] d">Urine Medical Bacteria Center </content>MANY HPF<content styleCode="Mulu lics"> (NEGATIVE HPF)</content> UNK 0-3 <content [facility] styleCode="[facility] d">Urine White Medical Blood Cell Center </content>3-5 HPF<content styleCode="Mulu lics"> (0-3 HPF)</content> ID Date Data Source Microbiology.[id number] 12/25/2019 02:20:00 PM EST [facility] 500 Name Value Range Interpretation Code Description Data Yolis rce(s) Supporting Document(s ) UNK <item><content [facility] styleCode="Bold"> Medical [facility] er Culture Report </content>
<t able><tbody><tr>< td>Specimen Number:</td><td>[id number]</td></tr ><tr><td>Sample Collection Date/Time: </td><td>12/25/2019 2:20 PM</td></tr><tr>< td>Specimen Source:</td><td>U RINE</td></tr><tr ><td>Urine Culture:</td><td> Collection Plate Date: 12/25/2019 14:26 </td></tr><tr><td >Culture Status:</td><td>P reliminary </td></tr><tr><td >Culture Report:</td><td>C ulture in progress </td></tr></tbody ></table></item> UNK <item><content [facility] styleCode="Bold"> Medical [facility] er Culture Status </content>
<t able><tbody><tr>< td>Specimen Number:</td><td>[id number]</td></tr ><tr><td>Sample Collection Date/Time: </td><td>12/25/2019 2:20 PM</td></tr><tr>< td>Specimen Source:</td><td>U RINE</td></tr><tr ><td>Culture Status:</td><td>P reliminary </td></tr><tr><td >Culture Report:</td><td>C ulture in progress </td></tr><tr><td >Urine Culture:</td><td> Collection Plate Date: 12/25/2019 14:26 </td></tr></tbody ></table></item> ID Date Data Source Liver 07/31/2019 04:15:00 PM EDT [facility] Profile.[id number] Name Value Range Interpretation Description Data Sup porting Code Source(s) Document(s ) Aspartate 14-36 <content [facility] aminotransferase styleCode="Bold"> [facility] [Enzymatic Aspartate Medical activity/volume] Aminotransferase Center in Serum or Plasma (AST) </content>20 IU/L<content styleCode="Italic s"> (14-36 IU/L)</content> Alanine 7-30 <content [facility] aminotransferase styleCode="Bold"> [facility] [Enzymatic Alanine Medical activity/volume] Aminotransferase Center in Serum or Plasma (ALT) </content>14 IU/L<content styleCode="Italic s"> (7-30 IU/L)</content> Alkaline 38-126 <content [facility] phosphatase styleCode="Bold"> [facility] [Enzymatic Alkaline Medical activity/volume] Phosphatase (ALP) Cente r in Serum or Plasma </content>58 IU/L<content styleCode="Italic s"> (38-126 IU/L)</content> UNK 0.0-0.3 <content [facility] styleCode="Bold"> [facility] Bilirubin, Direct Medical </content>< 0.2 Center MG/DL<content styleCode="Italic s"> (0.0-0.3 MG/DL)</content> Bilirubin.total 0.2-1.3 <content [facility] [Mass/volume] in styleCode="Bold"> [facility] Serum or Plasma Bilirubin Total Medical </content>0.4 Center MG/DL<content styleCode="Italic s"> (0.2-1.3 MG/DL)</content> Albumin 3.5-5.0 <content [facility] [Mass/volume] in styleCode="Bold"> [facility] Serum or Plasma Albumin Medical </content>4.2 Center G/DL<content styleCode="Italic s"> (3.5-5.0 G/DL)</content> ID Date Data Source HematologyRou.[id number] 07/31/2019 04:15:00 PM EDT [facility] 0400 Name Value Range Interpretation Description Data Sup porting Code Source(s) Document(s ) Leukocytes 4.4-11.0 Above high <content [facility] [#/volume] in normal styleCode="Bold [facility] Blood by ">White Blood Medical Automated count Cell Count Center </content>12.54 KCUMM H<content styleCode="Ital ics"> (4.4-11.0 KCUMM)</content > Hemoglobin 12.3-16. <content [facility] [Mass/volume] in 0 styleCode="Bold [facility] Blood ">Hemoglobin Medical </content>12.5 Center G/DL<content styleCode="Ital ics"> (12.3-16.0 G/DL)</content> Erythrocytes 4.0-5.1 <content [facility] [#/volume] in styleCode="Bold [facility] Blood by ">Red Blood Medical Automated count Cell Count Center </content>4.11 MCUMM<content styleCode="Ital ics"> (4.0-5.1 MCUMM)</content > Hematocrit 36.0-46. <content [facility] [Volume 0 styleCode="[facility] Fraction] of ">Hematocrit Medical Blood by </content>36.3 Center Automated count %<content styleCode="Ital ics"> (36.0-46.0 %)</content> Erythrocyte mean 80.0-100 <content [facility] corpuscular .0 styleCode="[facility] volume [Entitic ">Mean Medical volume] by Corpuscular Center Automated count Volume </content>88.3 FL<content styleCode="Ital ics"> (80.0-100.0 FL)</content> Erythrocyte 11.5-14. <content [facility] distribution 5 styleCode="[facility] width [Ratio] by ">Red Cell Medical Automated count Distribution Center Width </content>11.6 %<content styleCode="Ital ics"> (11.5-14.5 %)</content> Erythrocyte mean 32.0-37. <content [facility] corpuscular 0 styleCode="[facility] hemoglobin ">Mean Corpus. Medical concentration Hgb Center [Mass/volume] by Concentration Automated count (MCHC) </content>34.4 G/DL<content styleCode="Ital ics"> (32.0-37.0 G/DL)</content> Platelet mean 8.0-11.0 <content [facility] volume [Entitic styleCode="B[facility] volume] in Blood ">Mean Platelet Medical by Automated Volume Center count </content>10.0 FL<content styleCode="Ital ics"> (8.0-11.0 FL)</content> Erythrocyte mean 26.0-34. <content [facility] corpuscular 0 styleCode="[facility] hemoglobin ">Mean Medical [Entitic mass] Corposcular Center by Automated Hemoglobin count </content>30.4 PG<content styleCode="Ital ics"> (26.0-34.0 PG)</content> Platelets 130-400 <content [facility] [#/volume] in styleCode="B[facility] Blood by ">Platelet Medical Automated count Count Center </content>227 KCUMM<content styleCode="Ital ics"> (130-400 KCUMM)</content > UNK 0 <content [facility] styleCode="[facility] ">Nucleated Red Medical Blood Cell Center </content>0.0 /100<content styleCode="Ital ics"> (0 /100)</content> UNK 0.0 <content [facility] styleCode="[facility] ">Nucleated Red Medical Blood Cell Center Count </content>0.00 KCUMM<content styleCode="Ital ics"> (0.0 KCUMM)</content > ID Date Data Source GFR(Creatinine).[id number] 07/31/2019 04:15:00 PM EDT [facility] 0-0400 Name Value Range Interpretation Code Description Data Yolis rce(s) Supporting Document(s ) UNK > 60 <content [facility] styleCode="Bold"> Medical Cent er EGFR </content>131 GFR<content styleCode="Italic s"> (> 60 GFR)</content> ID Date Data [id number] 07/31/[facility] 04:15:[address] [facility] -0400 Name Value Range Interpretation Description Data Sup porting Code Source(s) Document(s ) UNK 30-110 <content [facility] styleCode="Bold Medical ">Amylase Center </content>47 IU/L<content styleCode="Ital ics"> (30-110 IU/L)</content> Lipase 23-300 <content [facility] [Enzymatic styleCode="Bold Medical activity/vo ">Lipase Center lume] in </content>27 Serum or IU/L<content Plasma styleCode="Ital ics"> (23-300 IU/L)</content> ID Date Data Source [facility].[id number] 07/31/2019 04:15:00 PM EDT [facility] Name Value Range Interpretation Description Data Sup porting Code Source(s) Document(s ) Sodium 137-145 <content [facility] [Moles/volume] in styleCode="Bold"> Gino phs Serum or Plasma Sodium Medical </content>137 Center MEQ/L<content styleCode="Italic s"> (137-145 MEQ/L)</content> Chloride 98-107 <content [facility] [Moles/volume] in styleCode="Bold"> Gino phs Serum or Plasma Chloride Medical </content>104 Center MEQ/L<content styleCode="Italic s"> (98-107 MEQ/L)</content> Creatinine 0.5-1.3 <content [facility] [Mass/volume] in styleCode="Bold"> [facility] Serum or Plasma Creatinine Medical </content>0.6 Center MG/DL<content styleCode="Italic s"> (0.5-1.3 MG/DL)</content> UNK 7-17 <content [facility] styleCode="Bold"> Todd BUN </content>11 Medical MG/DL<content Center styleCode="Italic s"> (7-17 MG/DL)</content> Glucose 74-106 Above high <content [facility] [Mass/volume] in normal styleCode="Bold"> [facility] Serum or Plasma Glucose Medical </content>127 Center MG/DL H<content styleCode="Italic s"> (74-106 MG/DL)</content> Potassium 3.5-5.3 <content [facility] [Moles/volume] in styleCode="Bold"> Gino phs Serum or Plasma Potassium Medical </content>3.7 Center MEQ/L<content styleCode="Italic s"> (3.5-5.3 MEQ/L)</content> Carbon dioxide, 22-30 <content [facility] total styleCode="Bold"> [facility] [Moles/volume] in Carbon Dioxide Medical Serum or Plasma </content>23 Center MEQ/L<content styleCode="Italic s"> (22-30 MEQ/L)</content> Calcium 8.4-10. <content [facility] [Mass/volume] in 2 styleCode="Bold"> [facility] Serum or Plasma Calcium Medical </content>9.4 Center MG/DL<content styleCode="Italic s"> (8.4-10.2 MG/DL)</content> Aspartate 14-36 <content [facility] aminotransferase styleCode="Bold"> [facility] [Enzymatic Aspartate Medical activity/volume] Aminotransferase Center in Serum or Plasma (AST) </content>20 IU/L<content styleCode="Italic s"> (14-36 IU/L)</content> UNK > 60 <content [facility] styleCode="Bold"> [facility] EGFR Medical </content>131 Center GFR<content styleCode="Italic s"> (> 60 GFR)</content> Albumin 3.5-5.0 <content [facility] [Mass/volume] in styleCode="Bold"> [facility] Serum or Plasma Albumin Medical </content>4.2 Center G/DL<content styleCode="Italic s"> (3.5-5.0 G/DL)</content> Bilirubin.total 0.2-1.3 <content [facility] [Mass/volume] in styleCode="Bold"> [facility] Serum or Plasma Bilirubin Total Medical </content>0.4 Center MG/DL<content styleCode="Italic s"> (0.2-1.3 MG/DL)</content> Alanine 7-30 <content [facility] aminotransferase styleCode="Bold"> [facility] [Enzymatic Alanine Medical activity/volume] Aminotransferase Center in Serum or Plasma (ALT) </content>14 IU/L<content styleCode="Italic s"> (7-30 IU/L)</content> Alkaline 38-126 <content [facility] phosphatase styleCode="Bold"> [facility] [Enzymatic Alkaline Medical activity/volume] Phosphatase (ALP) Cente r in Serum or Plasma </content>58 IU/L<content styleCode="Italic s"> (38-126 IU/L)</content> ID Date Data Source Urinalysis.[id number] 07/31/2019 04:05:00 PM EDT [facility] 0 Name Value Range Interpretation Description Data Sup porting Code Source(s) Document(s ) Color of Urine YELLOW <content [facility] styleCode="[facility] d">Color, Medical Urine Center </content>YELL OW <content styleCode="Mulu lics"> (YELLOW )</content> Ketones NEGATIVE <content [facility] [Mass/volume] styleCode="[facility] in Urine by d">Urine Medical Test strip Ketone Center </content>NEGA TIVE MG/DL<content styleCode="Mulu lics"> (NEGATIVE MG/DL)</conten t> Specific 1.015-1.02 <content [facility] gravity of 5 styleCode="[facility] Monroes Urine by Test d">Urine Medical strip Specific Center [place] </content>1.02 0 <content styleCode="Mulu lics"> (1.015-1.025 )</content> UNK CLEAR <content Saint styleCode="[facility] Todd d">Urine Medical Clarity Center </content>CHRISTOPHER R <content styleCode="Mulu lics"> (CLEAR )</content> UNK NEGATIVE <content [facility] styleCode="[facility] d">Urine Medical Bilirubin Center </content>NEGA TIVE <content styleCode="Mulu lics"> (NEGATIVE )</content> Glucose NEGATIVE <content [facility] [Mass/volume] styleCode="[facility] in Urine by d">Urine Medical Test strip Glucose Center </content>NEGA TIVE MG/DL<content styleCode="Mulu lics"> (NEGATIVE MG/DL)</conten t> Hemoglobin NEGATIVE <content [facility] [Presence] in styleCode="[facility] Urine by Test d">Urine Blood Medical strip </content>LARG Center E <content styleCode="Mulu lics"> (NEGATIVE )</content> Nitrite NEGATIVE <content [facility] [Presence] in styleCode="[facility] Urine by Test d">Urine Medical strip Nitrite Center </content>NEGA TIVE <content styleCode="Mulu lics"> (NEGATIVE )</content> Urobilinogen 0.2-1.0 <content [facility] [Units/volume] styleCode="[facility] Monroes in Urine by d">Urine Medical Test strip Urobilinogen Center </content>0.2 MG/DL<content styleCode="Mulu lics"> (0.2-1.0 MG/DL)</conten t> Protein NEGATIVE <content [facility] [Mass/volume] styleCode="[facility] in Urine by d">Urine Medical Test strip Protein Center </content>30 MG/DL<content styleCode="Mulu lics"> (NEGATIVE MG/DL)</conten t> pH of Urine by 4.5-8.0 <content [facility] Test strip styleCode="[facility] d">Urine pH Medical </content>6.0 Center <content styleCode="Mulu lics"> (4.5-8.0 )</content> UNK <content [facility] styleCode="[facility] d">Epithelial Medical Cell Center </content>5 - 10 LPF (Reference Range: not available)<br/ > Leukocyte NEGATIVE <content [facility] esterase styleCode="[facility] Monroes [Presence] in d">Urine Medical Urine by Test Leukocyte Center strip </content>MODE RATE <content styleCode="Mulu lics"> (NEGATIVE )</content> UNK NEGATIVE <content [facility] styleCode="[facility] Mnoroes d">Urine Medical Bacteria Center </content>MANY HPF<content styleCode="Mulu lics"> (NEGATIVE HPF)</content> UNK 0-3 <content [facility] styleCode="[facility] d">Urine Red Medical Blood Cell Center </content>10 - 20 HPF<content styleCode="Mulu lics"> (0-3 HPF)</content> UNK 0-3 <content [facility] styleCode="[facility] d">Urine White Medical Blood Cell Center </content>>200 HPF<content styleCode="Mulu lics"> (0-3 HPF)</content> Procedure Social History Code Duration Value Status Description Data Source(s ) Smoking 01/04/2020 Denies Ever completed Denies Ever Smoked [facility] 04:58:00 PM EST Smoked Medical C enter Smoking 01/04/2020 Denies Ever completed Denies Ever Smoked [facility] 04:50:00 PM EST Smoked Medical C enter Smoking 12/25/2019 Denies Ever completed Denies Ever Smoked [facility] 02:52:00 PM EST Smoked Medical C enter Smoking 12/25/2019 Denies Ever completed Denies Ever Smoked [facility] 02:30:00 PM EST Smoked Medical C enter Smoking 12/25/2019 Denies Ever completed Denies Ever Smoked [facility] 02:16:00 PM EST Smoked Medical C enter Smoking 07/31/2019 Denies Ever completed Denies Ever Smoked [facility] 03:22:00 PM EDT Smoked Medical C enter Smoking 07/31/2019 Denies Ever completed Denies Ever Smoked [facility] 02:19:00 PM EDT Smoked Medical C enter Smoking 07/19/2019 Denies Ever completed Denies Ever Smoked [facility] 08:17:00 PM EDT Smoked Medical C enter Smoking 07/19/2019 Denies Ever completed Denies Ever Smoked [facility] 08:00:00 PM EDT Smoked Medical C enter Smoking 07/19/2019 Denies Ever completed Denies Ever Smoked [facility] 07:38:00 PM EDT Smoked Medical C enter Smoking 07/12/2019 Denies Ever completed Denies Ever Smoked [facility] 11:53:00 PM EDT Smoked Medical C enter Smoking 07/12/2019 Denies Ever completed Denies Ever Smoked [facility] 10:18:00 PM EDT Smoked Medical C enter Smoking 07/12/2019 Denies Ever completed Denies Ever Smoked [facility] 09:49:00 PM EDT Smoked Medical C enter Vital Signs ID Date Data Source UNK Name Value Range Interpretation Code Description Data Source(s) Oxygen saturation 99 % 99 % [facility] by Pulse oximetry Heart rate 87 /min 87 /min [facility] Body temperature 36.815750 36.374246 [facility] Respiratory rate 18 /min 18 /min [facility] Oxygen saturation 98 % 98 % [facility] by Pulse oximetry Heart rate 102 /min 102 /min [facility] Diastolic blood 88 mm[Hg] 88 mm[Hg] [facility] Systolic blood 142 mm[Hg] 142 mm[Hg] [facility] Body temperature 36.216207 36.819836 [facility] Respiratory rate 18 /min 18 /min [facility] Oxygen saturation 99 % 99 % [facility] by Pulse oximetry Heart rate 90 /min 90 /min [facility] Diastolic blood 68 mm[Hg] 68 mm[Hg] [facility] Systolic blood 110 mm[Hg] 110 mm[Hg] [facility] Body temperature 36.451653 36.902041 [facility] Respiratory rate 17 /min 17 /min [facility] Oxygen saturation 98 % 98 % [facility] by Pulse oximetry Heart rate 92 /min 92 /min [facility] Diastolic blood 65 mm[Hg] 65 mm[Hg] [facility] Systolic blood 105 mm[Hg] 105 mm[Hg] [facility] Body temperature 37.771588 37.545268 [facility] Respiratory rate 18 /min 18 /min [facility] Oxygen saturation 97 % 97 % [facility] by Pulse oximetry Heart rate 50 /min 50 /min [facility] Diastolic blood 85 mm[Hg] 85 mm[Hg] [facility] Systolic blood 144 mm[Hg] 144 mm[Hg] [facility] Body weight 63.299383 kg 63.225166 kg [facility] Body temperature 37.056947 37.132344 [facility] Respiratory rate 19 /min 19 /min [facility] Oxygen saturation 100 % 100 % [facility] Arterial blood [facility] by Pulse oximetry Heart rate 75 /min 75 /min [facility] Body height 160.122788 160.454431 cm [facility] Diastolic blood 50 mm[Hg] 50 mm[Hg] [facility] pressure [facility] Systolic blood 113 mm[Hg] 113 mm[Hg] [facility] Body mass index 24.7 kg/m2 24.7 kg/m2 [facility] (BMI) [Ratio] Medical [facility] Body temperature 36.251704 36.675400 [facility] Respiratory rate 16 /min 16 /min [facility] Oxygen saturation 97 % 97 % [facility] Arterial blood [facility] by Pulse oximetry Heart rate 96 /min 96 /min [facility] Diastolic blood 58 mm[Hg] 58 mm[Hg] [facility] Systolic blood 109 mm[Hg] 109 mm[Hg] [facility] Body temperature 36.505153 36.026502 [facility] Respiratory rate 17 /min 17 /min [facility] Oxygen saturation 99 % 99 % [facility] Arterial blood [facility] by Pulse oximetry Heart rate 68 /min 68 /min [facility] Diastolic blood 65 mm[Hg] 65 mm[Hg] [facility] Systolic blood 109 mm[Hg] 109 mm[Hg] [facility]
--- OUTSIDE RECORDS SUMMARY | 2020-08-31 11:14 | XMS ---
:1995 Author Organization [facility] Care Team Providers Name Role Phone RASHIDA GARCIA Unavailable Unavailable ED STAFF PHYSICIAN, STAFF Unavailable Unavailable CLARIBEL CLIFTON Unavailable Unavailable ED STAFF PHYSICIAN Unavailable Unavailable [...] is protected by Article 27-F of the [facility] Public Health law. If you continue you may haveaccess to information: Regarding HIV / AIDS; Provided by facilities licensed or operated by the [facility] Office of Mental Health; or Provided by the [facility] Office for People With Developmental Disabilities. If such information is present, then the following [facility] mandated warning applies: This information has [...] law may result in a fine or group home sentence or both. A general authorization for the release of medical or other information is NOT sufficient authorization for further disclosure. Encounters Encounter Providers Location Date Indications Data Source(s ) Emergency Attender: CLARIBEL [place] 01/04/2020 [facility] [place] 04:42:00 PM EST [facility] Center CAttender: STAFF ED - 01/04/2020 STAFF 07:01:00 PM EST PHYSICIANAdmitter: CLARIBEL [place] Patient discharged. Emergency Attender: ED STAFF H 12/25/2019 02:04:00 PM [facility] PHYSICIANAttender: STAFF ED EST - 12/25/2019 Medical Center STAFF PHYSICIANAdmitter: ED 05:46:00 PM EST STAFF PHYSICIAN Patient discharged. Outpatient Attender: RADHA 08/26/2019 06:00:00 AM [facility] RASHIDA MedeirosAdmitter: EDT [facility] RASHIDA GARCIA Emergency H 07/31/2019 01:51:00 PM EDT - [address] [place] [address] 09:47:00 PM EDT Patient discharged. Emergency H 07/19/2019 07:29:00 PM EDT - [address] [place] [address] 09:21:00 PM EDT Patient discharged. Emergency H 07/12/2019 09:43:00 PM EDT - [address] [place] [address] 01:35:00 AM EDT Patient discharged. Insurance Providers Payer name Policy type Policy ID Covered Covered alliance party's Policy P carlos / Coverage alliance party ID relationship to [employer] Inf ormation type [place] [id number] [place] [id number] HMO MVP/HHP O [id number] 01 [id number] 000 O MEDICAID [id number] SP [id number] MVP/HHP O [id number] 01 [id number] 000 Problems, Conditions, and Diagnoses Code Display Name Description Problem Type Effective Dates Data Source(s) Z3A.00 Weeks of WEEKS OF Diagnosis 01/04/2020 [facility] gestation of GESTATION OF 04:42:00 PM EST [facility] al Center not NOT specified SPECIFIED Z34.90 Encounter for ENCNTR FOR Diagnosis 01/04/2020 [facility] supervision of SUPRVSN OF NORMAL 04:42:[address] [facility] normal , , UNSP, unspecified, UNSP TRIMESTER unspecified trimester Z04.89 ENCOUNTER FOR ENCOUNTER FOR Diagnosis 01/04/2020 [facility] EXAMINATION AND EXAMINATION AND 04:42:00 PM [facility] OBSERVATION FOR OBSERVATION FOR OTH REASONS OTH REASONS O23.41 Unspecified UNSP INFCT OF Diagnosis 12/25/2019 [facility] infection of URINARY TRACT IN 02:04:00 PM [facility] urinary tract in , FIRST , first TRIMESTER trimester Z32.00 Encounter for ENCOUNTER FOR Diagnosis 12/25/2019 [facility] test, TEST, 02:04:00 PM [facility] Center result unknown RESULT UNKNOWN 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 [facility] al nephritis, not AL NEPHRITIS, NOT 01:51:00 PM EDT Medical Center specified as SPCF ACUTE OR acute or chronic CHRONIC N95.1 Menopausal and MENOPAUSAL AND Diagnosis 07/31/2019 [facility] female FEMALE 01:51:00 PM EDT Medical C enter climacteric CLIMACTERIC states STATES M62.830 Muscle spasm of MUSCLE SPASM OF Diagnosis 07/19/2019 [facility] back BACK 07:29:00 PM EDT Medical C enter M54.9 Dorsalgia, DORSALGIA, Diagnosis 07/19/2019 [facility] unspecified UNSPECIFIED 07:29:00 PM EDT Medical Center M79.18 MYALGIA, OTHER MYALGIA, OTHER Diagnosis 07/12/2019 [facility] SITE 09:43:00 PM EDT Medical C enter Results ID Date Data Source Urinalysis.[id number] 12/25/2019 02:20:00 PM MITCH [facility] 0 Name Value Range Interpretation Description Data Sup porting Code Source(s) Document(s ) Glucose NEGATIVE <content Saint [Mass/volume] styleCode="[facility] in Urine by d">Urine Medical Test strip Glucose Center </content>NEGA TIVE MG/DL<content styleCode="Mulu lics"> (NEGATIVE MG/DL)</conten t> UNK CLEAR <content [facility]">Urine Medical Clarity Center </content>CHRISTOPHER R <content styleCode="Mulu lics"> (CLEAR )</content> Color of Urine YELLOW <content [facility]">Color, Medical Urine Center </content>YELL OW <content styleCode="Mulu lics"> (YELLOW )</content> UNK NEGATIVE <content Saint styleCode="[facility] d">Urine Medical Bilirubin Center </content>NEGA TIVE <content styleCode="Mulu lics"> (NEGATIVE )</content> Ketones NEGATIVE <content [facility] [Mass/volume] styleCode="[facility] in Urine by d">Urine Medical Test strip Ketone Center </content>NEGA TIVE MG/DL<content styleCode="Mulu lics"> (NEGATIVE MG/DL)</conten t> Specific 1.015-1.02 <content [facility] gravity of 5 styleCode="[facility] Urine by Test d">Urine Medical strip Specific Center [place] </content>1.02 0 <content styleCode="Mulu lics"> (1.015-1.025 )</content> pH of Urine by 4.5-8.0 <content Saint Test strip styleCode="[facility] d">Urine pH Medical </content>7.0 Center <content styleCode="Mulu lics"> (4.5-8.0 )</content> Hemoglobin NEGATIVE <content Saint [Presence] in styleCode="[facility] Urine by Test d">Urine Blood Medical strip [...] lics"> (0-3 HPF)</content> ID Date Data Source Microbiology.[id number] 12/25/2019 02:20:00 PM EST [facility] 500 Name Value Range Interpretation Code Description Data Yolis rce(s) Supporting Document(s ) UNK <item><content [facility] styleCode="Bold"> [facility] er Culture Report </content>
<t able><tbody><tr>< td>Specimen Number:</td><td>[id number]</td></tr ><tr><td>Sample Collection Date/Time: </td><td>12/25/2019 2:20 PM</td></tr><tr>< td>Specimen Source:</td><td>U RINE</td></tr><tr ><td>Urine Culture:</td><td> Collection Plate Date: 12/25/2019 14:26 </td></tr><tr><td >Culture Status:</td><td>P reliminary </td></tr><tr><td >Culture Report:</td><td>C ulture in progress </td></tr></tbody ></table></item> UNK <item><content [facility] styleCode="Bold"> [facility] er Culture Status </content>
<t able><tbody><tr>< td>Specimen Number:</td><td>[id number]</td></tr ><tr><td>Sample Collection Date/Time: </td><td>12/25/2019 2:20 PM</td></tr><tr>< td>Specimen Source:</td><td>U RINE</td></tr><tr ><td>Culture Status:</td><td>P reliminary </td></tr><tr><td >Culture Report:</td><td>C ulture in progress </td></tr><tr><td >Urine Culture:</td><td> Collection Plate Date: 12/25/2019 14:26 </td></tr></tbody ></table></item> ID Date Data Source Liver 07/31/2019 04:15:00 PM EDT [facility] Profile.[id number] Name Value Range Interpretation Description Data Sup [...] s"> (3.5-5.0 G/DL)</content> ID Date Data Source HematologyRou.[id number] 07/31/2019 04:15:00 PM EDT [facility] 0400 Name Value Range Interpretation Description Data [...] Erythrocyte 11.5-14. <content [facility] distribution 5 styleCode="Bold [facility] width [Ratio] by ">Red Cell Medical Automated [...] (0.0 KCUMM)</content > ID Date Data Source GFR(Creatinine).[id number] 07/31/2019 04:15:00 PM EDT [facility] 0-0400 Name Value Range Interpretation Code Description Data Yolis rce(s) Supporting Document(s ) UNK > 60 <content [facility] styleCode="Bold"> Medical Cent er EGFR </content>131 GFR<content styleCode="Italic s"> (> 60 GFR)</content> ID Date Data Source CHMROUTINECCDA.[id number] 07/31/2019 04:15:00 PM EDT [facility] Name Value Range Interpretation Description Data Sup porting Code Source(s) Document(s ) UNK 30-110 <content [facility] styleCode="Bold Medical ">Amylase Center </content>47 IU/L<content styleCode="Ital ics"> (30-110 IU/L)</content> Lipase 23-300 <content [facility] [Enzymatic styleCode="Bold Medical activity/vo ">Lipase Center lume] in </content>27 Serum or IU/L<content Plasma styleCode="Ital ics"> (23-300 IU/L)</content> ID Date Data Source [facility].[id number] 07/31/2019 04:15:[address] [facility] Name Value Range Interpretation Description Data Sup [...] (0.5-1.3 MG/DL)</content> UNK 7-17 <content Saint styleCode="Bold"> [facility] BUN </content>11 Medical MG/DL<content Center styleCode="Italic s"> [...] s"> (38-126 IU/L)</content> ID Date Data Source Urinalysis.[id number] 07/31/2019 04:05:00 PM EDT [facility] 0 Name Value Range Interpretation Description Data Sup porting Code Source(s) Document(s ) Color of Urine YELLOW <content Saint styleCode="[facility] d">Color, Medical Urine Center </content>YELL OW <content styleCode="Mulu lics"> (YELLOW )</content> Ketones NEGATIVE <content [facility] [Mass/volume] styleCode="[facility] in Urine by d">Urine Medical Test strip Ketone Center </content>NEGA TIVE MG/DL<content styleCode="Mulu lics"> (NEGATIVE MG/DL)</conten t> Specific 1.015-1.02 <content [facility] gravity of 5 styleCode="[facility] Urine by Test d">Urine Medical strip Specific Center [place] </content>1.02 0 <content styleCode="Mulu lics"> (1.015-1.025 )</content> UNK CLEAR <content Saint styleCode="[facility] d">Urine Medical Clarity Center </content>CHRISTOPHER R <content styleCode="Mulu lics"> (CLEAR )</content> UNK NEGATIVE <content Saint styleCode="[facility] d">Urine Medical Bilirubin Center </content>NEGA TIVE <content styleCode="Mulu lics"> (NEGATIVE )</content> Glucose NEGATIVE <content [facility] [Mass/volume] styleCode="[facility] in Urine by d">Urine Medical Test strip Glucose Center </content>NEGA TIVE MG/DL<content styleCode="Mulu lics"> (NEGATIVE MG/DL)</conten t> Hemoglobin NEGATIVE <content [facility] [Presence] in styleCode="[facility] Urine by Test d">Urine Blood Medical strip </content>LARG Center E <content styleCode="Mulu lics"> (NEGATIVE )</content> Nitrite NEGATIVE <content [facility] [Presence] in styleCode="[facility] Urine by Test d">Urine Medical strip Nitrite Center </content>NEGA TIVE <content styleCode="Mulu lics"> (NEGATIVE )</content> Urobilinogen 0.2-1.0 <content [facility] [Units/volume] styleCode="[facility] in Urine by d">Urine Medical Test strip Urobilinogen Center </content>0.2 MG/DL<content styleCode="Mulu lics"> (0.2-1.0 MG/DL)</conten t> Protein NEGATIVE <content [facility] [Mass/volume] styleCode="[facility] in Urine by d">Urine Medical Test strip Protein Center </content>30 MG/DL<content styleCode="Mulu lics"> (NEGATIVE MG/DL)</conten t> pH of Urine by 4.5-8.0 <content Saint Test strip styleCode="[facility] d">Urine pH Medical </content>6.0 Center <content styleCode="Mulu lics"> (4.5-8.0 )</content> UNK <content Saint styleCode="[facility] d">Epithelial Medical Cell Center </content>5 - 10 LPF (Reference Range: not available)<br/ > Leukocyte NEGATIVE <content Saint esterase styleCode="[facility] [Presence] in d">Urine Medical Urine by Test Leukocyte Center strip </content>MODE RATE <content styleCode="Mulu lics"> (NEGATIVE )</content> UNK NEGATIVE <content [facility] styleCode="[facility] [...] Denies Ever completed Denies Ever Smoked [facility] 08:17:00 PM EDT Smoked Medical C enter [...] 07/12/2019 Denies Ever completed Denies Ever Smoked [facility] 09:49:00 PM EDT Smoked Medical C enter Vital Signs ID Date Data Source UNK Name Value Range Interpretation Code Description Data Source(s) Oxygen saturation 99 % 99 % [facility] by Pulse oximetry Heart rate 87 /min 87 /min [facility] Body temperature 36.242645 36.929192 [facility] Respiratory rate 18 /min 18 /min [facility] Oxygen saturation 98 % 98 % [facility] by Pulse oximetry Heart rate 102 /min 102 /min [facility] Diastolic blood 88 mm[Hg] 88 mm[Hg] [facility] Systolic blood 142 mm[Hg] 142 mm[Hg] [facility] Body temperature 36.995967 36.449615 [facility] Respiratory rate 18 /min 18 /min [facility] Oxygen saturation 99 % 99 % [facility] by Pulse oximetry Heart rate 90 /min 90 /min [facility] Diastolic blood 68 mm[Hg] 68 mm[Hg] [facility] Systolic blood 110 mm[Hg] 110 mm[Hg] [facility] Body temperature 36.415388 36.550283 [facility] Respiratory rate 17 /min 17 /min [facility] Oxygen saturation 98 % 98 % [facility] by Pulse oximetry Heart rate 92 /min 92 /min [facility] Diastolic blood 65 mm[Hg] 65 mm[Hg] [facility] Systolic blood 105 mm[Hg] 105 mm[Hg] [facility] Body temperature 37.107913 37.719295 [facility] Respiratory rate 18 /min 18 /min [facility] Oxygen saturation 97 % 97 % [facility] by Pulse oximetry Heart rate 50 /min 50 /min [facility] Diastolic blood 85 mm[Hg] 85 mm[Hg] [facility] Systolic blood 144 mm[Hg] 144 mm[Hg] [facility] Body weight 63.799758 kg 63.571177 kg [facility] Body temperature 37.503434 37.404333 [facility] Respiratory rate 19 /min 19 /min [facility] Oxygen saturation 100 % 100 % [facility] Arterial blood [facility] by Pulse oximetry Heart rate 75 /min 75 /min [facility] Body height 160.611867 160.013204 cm [facility] Diastolic blood 50 mm[Hg] 50 mm[Hg] [facility] pressure Medical Center Systolic blood 113 mm[Hg] 113 mm[Hg] [facility] Body mass index 24.7 kg/m2 24.7 kg/m2 [facility] (BMI) [Ratio] Medical [facility] ter Body temperature 36.147129 36.160016 [facility] Respiratory rate 16 /min 16 /min [facility] Oxygen saturation 97 % 97 % [facility] blood [facility] by Pulse oximetry Heart rate 96 /min 96 /min [facility] Diastolic blood 58 mm[Hg] 58 mm[Hg] [facility] Systolic blood 109 mm[Hg] 109 mm[Hg] [facility] Body temperature 36.921248 36.788634 [facility] Respiratory rate 17 /min 17 /min [facility] Oxygen saturation 99 % 99 % [facility] blood [facility] by Pulse oximetry Heart rate 68 /min 68 /min [facility] Diastolic blood 65 mm[Hg] 65 mm[Hg] [facility] Systolic blood 109 mm[Hg] 109 mm[Hg] [facility]
[2020-08-31] MEDS: ELECTROLYTE-148 SOLN 1,000 ML IV SCH (11:15)
[2020-08-31] MEDS ORDERED: OXYTOCIN 30 UNITS in 0.9% NS 30 UNIT/500 ML INFUS.BAG IVPB SCH (11:15)
--- NOTE | 2020-08-31 11:18 | HP ---
Past Medical History - Primary Care Physician PCP:: Spencer Ching E - Admission Chief Complaint: contractions. History of Present Illness: complicated by UTIs, recurrent pain. EDC 09.09.2020. 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: Alzheimer's, CVA, Dementia, Migraine, Multiple Sclerosis, Peripheral Neuropathy, Parkinson's, Seizure, Syncope, TIA, Vertigo, Other Cardiovascular: No: AFIB, Aneurysm, Aortic Insufficiency, Aortic Stenosis, CAD, CHF, Deep Vein Thrombosis, HTN, Hyperlipdemia, DC, Mitral Insufficiency, Mitral Stenosis, Murmur, Pulmonary Hypertension, Other Pulmonary: No: Asthma, Bronchitis, Cancer, COPD, O2 Dependent, Pneumonia, Previously Intubated, Pulmonary Embolus, Pulmonary Fibrosis, Sleep Apnea, Other Gastrointestinal: No: Ascites, Cancer, Constipation, Crohn's Disease, Diverticulitis, Diverticulosis, Esophageal Varices, Gastritis, GERD, GI Bleed, Hemorrhoids, Hiatal Hernia, Inflamatory Bowel Disease, Irritable Bowel Disease, Pancreatitis, Peptic Ulcer Disease, Ulcerative Colitis, Other Hepatobiliary: No: Cirrhosis, Cholelithiasis, Cholecystitis, Choledocholithiasis, Hepatitis A, Hepatitis B, Hepatitis C, Other Renal/: No: Renal Failure, Renal Inusuff, BPH, Cancer, Hematuria, Hemodialysis, Neurogenic Bladder, Renal Calculi, UTI, Other Reproductive: No: Ectopic , Endometriosis, Fibroids, PID, Polycystic Ovary Syndrome, Postmenopausal, Other ... Weeks Gestation by Dates: 38.5 ...EDC by Dates: 09/09/20 Heme/Onc: No: Anemia, B12 Deficiency, Bleeding Disorder, Cancer, Current Chemotherapy, Current Radiation Therapy, Hemochromatosis, Hypercoaguable State, Myeloproliferative Synd, Sickle Cell Disease, Sickle Cell Trait, Thrombocytopenia, Other Infectious Disease: No: AIDS, C-Diff, Herpes Zoster, HIV, MRSA, STD's, Tuberculosis, VREF, Other Psych: No: Addictions, Anxiety, Bipolar, Depression, Panic, Psychosis, Dariela izophrenia, Other Musculoskeletal: No: Bursitis, Chronic low back pain, Hemiparesis, Hemiplegia, Osteoarthritis, Paraplegia, Other Rheumatology: No: Fibromyalgia, Gout, Lupus, Rheumatoid Arthritis, Sarcoidosis, Vasculitis, Other ENT: No: Allergic Rhinitis, Sinusitis, Other Endocrine: No: Renton's Disease, Shubham's Disease, Diabetes Insipidus, Diabetes Mellitus, Hyperparathyroidism, Hyperthyroidism, Hypothyroidism, Osteopenia, SIADH, Other Dermatology: No: Basal Cell, Cellulitis, Eczema, Melanoma, Psoriasis, Squamous Cell, Other - Past Surgical History Past Surgical History: Yes: None. No: AAA Repair, AICD, Amputation, Appende ctomy, Arthrosocopy, AV Fistula/Graft, Bariatric Surgery, Breast Biopsy, Bypass, CABG, Carotid Endarterectomy, Cataract Removal, Cholecystectomy, Colectomy, Colonoscopy, Colostomy, Craniotomy, , Cystectomy, Hernia Repair, Hysterectomy, Ileal Conduit, Ileosotomy, Joint Replacement, Kidney Transplant, Laminectomy, Liver Transplant, Mastectomy, Nephrectomy, Oopherectomy, Orchiectomy, Permanent Pacemaker, Prostatectomy, Splenectomy, Stent, Thoracotomy, TURP, Tonsillectomy, Tubal Ligation, Upper Endoscopy, Valve Replacement, Vasectomy, Vein Stripping/Ligation Hx Myomectomy: No Hx Transabdominal Cerclage: No - Smoking History Smoking history: Never smoked Have you smoked in the past 12 months: No Aproximately how many cigarettes per day: 0 - Alcohol/Substance Use Hx Alcohol Use: No Home Medications - Allergies Allergies/Adverse Reactions: Allergies Allergy/AdvReac Type Severity Reaction Status Date / Time No Known Drug Allergies Allergy Verified 06/04/20 10:25 nuts Allergy Severe Difficulty Uncoded 06/04/20 10:04 Breathing - Home Medications Home Medications: Ambulatory Orders Vitamins (Sjr) - 1 tab PO DAILY 06/21/15 Family Medical History Family History: Unremarkable Review of Systems - Review of Systems Constitutional: reports: No Symptoms Eyes: reports: No Symptoms HENT: reports: No Symptoms Neck: reports: No Symptoms Cardiovascular: reports: No Symptoms Respiratory: reports: No Symptoms Gastrointestinal: reports: No Symptoms Genitourinary: reports: No Symptoms Breasts: reports: No Symptoms Reported Musculoskeletal: reports: No Symptoms Integumentary: reports: No Symptoms Neurological: reports: No Symptoms Endocrine: reports: No Symptoms Hematology/Lymphatic: reports: No Symptoms Psychiatric: reports: No Symptoms Physical Exam - Maternity Constitutional: Yes: Well Nourished, No Distress, Calm Eyes: Yes: WNL, Conjunctiva Clear, EOM Intact HENT: Yes: WNL, Atraumatic, Normocephalic Neck: Yes: WNL, Supple, Trachea Midline Cardiovascular: Yes: WNL, Regular Rate and Rhythm Breast(s): Yes: WNL - Abdominal Exam/OB Fundal Height: 38 Number of Fetuses: Single Presentation: Vertex Contractions: Yes Regularity: Irregular Intensity: Mild/Mod Monitor Mode: External Heart Rate (range): 140 Heart Rate Location: [facility] Category: I Accelerations: Uniform - Vaginal Exam/OB Dilatation (cm): 2-3 Effacement (%): 50 Amniotic Membrane Status: Intact Presentation: Vertex/Position Station: -2 - Physical Exam Musculoskeletal: Yes: WNL Problem List - Problems (1) Term Code(s): Z34.90 - ENCNTR FOR SUPRVSN OF NORMAL , UNSP, UNSP TRIMESTER (2) Normal labor Code(s): O80 - ENCOUNTER FOR FULL-TERM UNCOMPLICATED DELIVERY; Z37.9 - OUTCOME OF DELIVERY, UNSPECIFIED Assessment/Plan At term in labor. GBS neg. Augment, deliver. Addendum. Pt got stadol/phenergan. Cx 3 cm 50%. AROM clear AF. FH cat 1.
[2020-08-31] MEDS ORDERED: OXYTOCIN 30 UNITS in 0.9% NS 30 UNIT/500 ML INFUS.BAG IVPB ONE (11:53)
[2020-08-31 12:35] VITALS: BMI 28.5
[2020-08-31 13:07] LABS: BASO % 0.5 % (0-2.0); EOS % 2.1 % (0-4.5); HEMATOCRIT 28.4 % (32.4-45.2); HEMOGLOBIN 9.6 GM/dL (10.7-15.3); LYMPH % 21.9 % (8-40); MCH 27.8 pg (25.7-33.7); MCHC 33.8 g/dl (32.0-36.0); MEAN CELL VOLUME 82.4 fl (80-96); MEAN PLT VOLUME 7.8 fl (7.5-11.1); MONO % 7.6 % (3.8-10.2); NEUT % 67.9 % (42.8-82.8); PLATELET COUNT 302 K/MM3 (134-434); RBC 3.44 M/mm3 (3.60-5.2); WHITE BLOOD COUNT 8.9 K/mm3 (4.0-10.0)
[2020-08-31 13:19] LABS: INR 0.98 (0.83-1.09); PROTHROMBIN TIME (PATIENT) 11.9 SEC (9.7-13.0)
[2020-08-31 13:22] LABS: ACTIVATED PTT 26.8 SECONDS (25.2-36.5)
[2020-08-31 13:36] LABS: BLOOD UREA NITROGEN 7.5 mg/dL (7-18); CALCIUM 8.4 mg/dL (8.5-10.1); CREATININE 0.5 mg/dL (0.55-1.3); POTASSIUM 3.9 mmol/L (3.5-5.1)
[2020-08-31] MEDS ORDERED: BUTORPHANOL TARTRATE 2 MG/ML VIAL IVPUSH ONE (14:00)
[2020-08-31] MEDS ORDERED: PROMETHAZINE HCL 25 MG/1 ML VIAL IVPUSH ONE (14:00)
[2020-08-31] MEDS ORDERED: PROMETHAZINE HCL 25 MG/1 ML VIAL ONE (14:06)
[2020-08-31] MEDS ORDERED: BUTORPHANOL TARTRATE 2 MG/ML VIAL ONE (14:06)
--- NOTE | 2020-08-31 15:41 | PN ---
Progress Note, Labor Vaginal Exam #2 Labor Exam Date: 08/31/20 Labor Exam Time: 15:35 Heart Rate (range): 140 Dilatation: 4 Effacement (%): 90 Amniotic Membrane Status: Ruptured Presentation: Vertex/Position Station: -1
[2020-08-31] MEDS ORDERED: PCA PUMP NR ONE ×2 (15:42→16:20)
[2020-08-31] MEDS ORDERED: FENTANYL/BUPIVACAINE/NS/PF - PCEA - 50 ML DISP.SYRIN EP ONE (15:42)
[2020-08-31] MEDS ORDERED: NALOXONE HCL 0.4 MG/ML VIAL IVPUSH PRN (16:45)
[2020-08-31] MEDS ORDERED: FENTANYL/BUPIVACAINE/NS/PF - PCEA - 50 ML DISP.SYRIN EP SCH (16:45)
--- NOTE | 2020-08-31 17:56 | PN ---
Problem List - Problems (1) Term Code(s): Z34.90 - ENCNTR FOR SUPRVSN OF NORMAL , UNSP, UNSP TRIMESTER (2) Normal labor Code(s): O80 - ENCOUNTER FOR FULL-TERM UNCOMPLICATED DELIVERY; Z37.9 - OUTCOME OF DELIVERY, UNSPECIFIED
--- NOTE | 2020-08-31 17:58 | PN ---
Progress Note, Labor Vaginal Exam #3 Labor Exam Date: 08/31/20 Labor Exam Time: 17:25 Dilatation: 10 Station: +1 (pushing)
[2020-08-31] MEDS ORDERED: OXYTOCIN 20 UNITS in 0.9% NS 20 UNIT/1,000 ML INFUS.BAG IV ONE (18:00)
[2020-08-31] MEDS ORDERED: OXYTOCIN 20 UNITS in 0.9% NS 20 UNIT/1,000 ML INFUS.BAG IV SCH (18:00)
--- NOTE | 2020-08-31 18:02 | PN ---
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 Cord divided by FOB; delayed. Happy.
[2020-08-31] MEDS ORDERED: WITCH HAZEL 50% (TUCKS) 40 PAD/JAR PAD TP PRN (18:03)
[2020-08-31] MEDS ORDERED: METHYLERGONOVINE MALEATE 0.2 MG/1 ML AMP IM PRN (18:03)
[2020-08-31] MEDS ORDERED: BENZOCAINE 20% 57 GM BOTTLE TP PRN (18:03)
[2020-08-31] MEDS ORDERED: BISACODYL 10 MG SUPP.RECT RC PRN (18:03)
[2020-08-31] MEDS ORDERED: BENZOCAINE 28 GM HEMORRHOIDAL OINTMENT TP PRN (18:03)
[2020-08-31] MEDS ORDERED: OXYTOCIN 20 UNITS in 0.9% NS 1000 ML INFUS.BAG IV ONE (18:03)
[2020-08-31] MEDS ORDERED: IBUPROFEN 600 MG TABLET (FP) PO ONE (21:17)
[2020-08-31] MEDS ORDERED: ACETAMINOPHEN 325 MG TABLET (FP) ONE (21:18)
[2020-09-01] MEDS: ELECTROLYTE-148 SOLN 1,000 ML IV SCH (01:50)
[2020-09-01] MEDS ORDERED: OXYTOCIN 20 UNITS in 0.9% NS 20 UNIT/1,000 ML INFUS.BAG IV ONE (01:53)
[2020-09-01 08:04] LABS: BASO % 0.3 % (0-2.0); EOS % 1.4 % (0-4.5); HEMATOCRIT 25.8 % (32.4-45.2); HEMOGLOBIN 8.7 GM/dL (10.7-15.3); LYMPH % 23.9 % (8-40); MCH 27.8 pg (25.7-33.7); MCHC 33.5 g/dl (32.0-36.0); MONO % 8.2 % (3.8-10.2); NEUT % 66.2 % (42.8-82.8); PLATELET COUNT 279 K/MM3 (134-434); RBC 3.11 M/mm3 (3.60-5.2); RDW 12.8 % (11.6-15.6)
[2020-09-01] MEDS ORDERED: IBUPROFEN 600 MG TABLET (FP) PO ONE (08:50)
[2020-09-01] MEDS ORDERED: ACETAMINOPHEN 325 MG TABLET (FP) ONE (08:50)
[2020-09-01] MEDS: IBUPROFEN 600 MG TABLET (FP) PO PRN ×2 (08:54→18:03)
[2020-09-01] MEDS: ACETAMINOPHEN 325 MG TABLET (FP) PO PRN ×2 (08:55→18:03)
[2020-09-01] MEDS ORDERED: PRENATAL VITAMINS W/ FOLIC ACID TABLET (FP) PO ONE (09:26)
[2020-09-01] MEDS: PRENATAL VITAMINS W/ FOLIC ACID TABLET (FP) PO SCH (10:00)
--- NOTE | 2020-09-01 21:13 | PN ---
Post Progress Note - Subjective Subjective: feels great. Nursing. Post Day: 1 Type of Delivery: Vital Signs: Vital Signs Temperature 97.6 F 09/01/20 10:00 Pulse Rate 84 09/01/20 10:00 Respiratory Rate 18 09/01/20 10:00 Blood Pressure 125/66 09/01/20 10:00 O2 Sat by Pulse Oximetry (%) 100 09/01/20 10:00 Breast Exam: Yes: Soft Uterus: Yes: Fundus Firm Abdomen/GI: Yes: Abdomen soft, Passing flatus Lochia: Yes: Rubra Lochia, amount: Small Extremities: Yes: Calves non-tender Perineum: Yes: Intact - Labs Labs: CBC WBC 13.0 K/mm3 (4.0-10.0) H 09/01/20 07:24 RBC 3.11 M/mm3 (3.60-5.2) L 09/01/20 07:24 Hgb 8.7 GM/dL (10.7-15.3) L 09/01/20 07:24 Hct 25.8 % (32.4-45.2) L 09/01/20 07:24 MCV 83.0 fl (80-96) 09/01/20 07:24 MCH 27.8 pg (25.7-33.7) 09/01/20 07:24 MCHC 33.5 g/dl (32.0-36.0) 09/01/20 07:24 RDW 12.8 % (11.6-15.6) 09/01/20 07:24 Plt Count 279 K/MM3 (134-434) 09/01/20 07:24 MPV 8.0 fl (7.5-11.1) 09/01/20 07:24 Absolute Neuts (auto) 8.6 K/mm3 (1.5-8.0) H 09/01/20 07:24 Neutrophils % 66.2 % (42.8-82.8) 09/01/20 07:24 Lymphocytes % 23.9 % (8-40) 09/01/20 07:24 Monocytes % 8.2 % (3.8-10.2) 09/01/20 07:24 Eosinophils % 1.4 % (0-4.5) 09/01/20 07:24 Basophils % 0.3 % (0-2.0) 09/01/20 07:24 Nucleated RBC % 0 % (0-0) 09/01/20 07:24 Problem List - Problems (1) Term Code(s): Z34.90 - ENCNTR FOR SUPRVSN OF NORMAL , UNSP, UNSP TRIMESTER (2) Normal labor Code(s): O80 - ENCOUNTER FOR FULL-TERM UNCOMPLICATED DELIVERY; Z37.9 - OUTCOME OF DELIVERY, UNSPECIFIED Assessment/Plan Doing well. Circumcision requqested and done. PE WNL.
[2020-09-01] MEDS ORDERED: SENNOSIDES/DOCUSATE COMBO (SENNA PLUS) TABLET (UD) PO PRN (22:00)
[2020-09-02] MEDS: IBUPROFEN 600 MG TABLET (FP) PO PRN ×2 (00:16→09:51)
[2020-09-02] MEDS: ACETAMINOPHEN 325 MG TABLET (FP) PO PRN ×2 (00:16→09:51)
--- NOTE | 2020-09-02 08:18 | PN ---
Progress Note (short form) - Note Progress Note: Doing very well. PE WNL. Instructions given. Discharge. Problem List - Problems (1) Term Code(s): Z34.90 - ENCNTR FOR SUPRVSN OF NORMAL , UNSP, UNSP TRIMESTER (2) Normal labor Code(s): O80 - ENCOUNTER FOR FULL-TERM UNCOMPLICATED DELIVERY; Z37.9 - OUTCOME OF DELIVERY, UNSPECIFIED
--- NOTE | 2020-09-02 08:23 | DS ---
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 Vital Signs: Vital Signs Temperature 98.6 F 09/01/20 22:00 Pulse Rate 74 09/01/20 22:00 Respiratory Rate 18 09/01/20 22:00 Blood Pressure 113/71 09/01/20 22:00 O2 Sat by Pulse Oximetry (%) 100 09/01/20 10:00 Constitutional: Yes: Well Nourished, No Distress, Calm Eyes: Yes: WNL, Conjunctiva Clear, EOM Intact HENT: Yes: WNL, Atraumatic, Normocephalic Neck: Yes: WNL, Supple, Trachea Midline Cardiovascular: Yes: WNL, Regular Rate and Rhythm Respiratory: Yes: WNL, Regular, CTA Bilaterally Gastrointestinal: Yes: WNL ...Rectal Exam: Yes: WNL Renal/: Yes: WNL ....Post : Yes: Uterus firm Breast(s): Yes: WNL Musculoskeletal: Yes: WNL Extremities: Yes: WNL Integumentary: Yes: WNL Neurological: Yes: WNL, Alert, Oriented ...Motor Strength: WNL Psychiatric: Yes: WNL, Alert, Oriented Labs: CBC, BMP 09/01/20 07:24 08/31/20 12:42 Delivery - Delivery Vaginal Delivery: No Problems, Spontaneous Type of Anesthesia: Epidural Episiotomy/Laceration: None EBL (cc): 300 Delivery, Single - Stages of Labor Date of Delivery: 08/31/20 Time of Delivery: 17:43 Time Placenta Delivered: 17:45 - 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 done. Remarks - Remarks Remarks: Good labor, delivery and recovery. Discharge today. Discharge Summary Problems reviewed: Yes Reason For Visit: LABOR ADMISSION Current Active Problems Normal labor (Acute) Term (Acute) Procedures: Principal: Delivery Hospital Course: uneventful Health Concerns: none Condition: Good - Instructions Diet, Activity, Other Instructions: Physical activity Resume your normal everyday activity as tolerated no heavy lifting or exercise until seen by your surgeon. You may walk unlimited elvira of and climb stairs. You may resume driving the car when you feel safe and comfortable behind the wheel. No sexual activity as instructed. Diet There are no dietary restrictions. Eat healthy, high-fiber foods. Drink 6 to 8 glasses of liquid each day. This will assist in keeping your bowels are regular. Pain management You may take Tylenol or acetaminophen or Ibuprofen (for example, Motrin, Advil etc.). If pain prescription medication is ordered should be taken as prescribed for moderate to severe pain. Call MD for any of the following: Severe pain not relieved by medication Fever of 101 or higher Excessive bleeding or drainage on dressing Inability to urinate Disposition: HOME - Home Medications Comprehensive Discharge Medication List: Ambulatory Orders Vitamins (Sjr) - 1 tab PO DAILY 06/21/15
[2020-09-02] MEDS: PRENATAL VITAMINS W/ FOLIC ACID TABLET (FP) PO SCH (09:53)
[2020-09-02 11:47] VITALS: BP 108/63; PULSE 67; TEMP 97.9
== END 2020-09-02 14:45 | disposition home or self-care (01) | DRG 560 ==
LOC: JDEL 10:05 → JLDR 11:05 → J3W 09-01 11:19
PROVIDERS: ADMIT Specialist; ATTEND Specialist
PROC: 10E0XZZ Delivery of Products of Conception, External Approach (ICD-10-PCS; principal; 2020-08-31)
PROC: 10907ZC Drainage of Amniotic Fluid, Therapeutic from Products of Conception, Via Natural or Artificial Opening (ICD-10-PCS; 2020-08-31)
DX: O80 Encounter for full-term uncomplicated delivery (principal); Z3A.38 38 weeks gestation of pregnancy; Z37.0 Single live birth
CPT/HCPCS: 36415; 59409; 80048; 85025; 85610; 85730; 86780; 86850; 86900; 86901; 87389; C9803; U0003

== ENCOUNTER 2021-06-23 18:25 | Emergency (ER) | payer OTHER ==
[2021-06-23 18:30] VITALS: BP 119/71; PULSE 107; TEMP 98.8; BMI 27.4
[2021-06-23] MEDS ORDERED: hydrOXYzine PAMOATE 25 MG CAPSULE (FP) PO ONE (19:05)
[2021-06-23] MEDS ORDERED: hydrOXYzine PAMOATE 50 MG CAPSULE (FP) PO ONE (19:05)
[2021-06-23] MEDS ORDERED: ALBUTEROL SO4 2.5/IPRATROPIUM 0.5 INH SOL 3 ML VIAL.NEB. NEB ONE ×2 (19:58→20:01)
[2021-06-23] MEDS ORDERED: SODIUM CHLORIDE FOR INHALATION 3 ML VIAL.NEB IH ONE (19:58)
== END 2021-06-23 20:52 | disposition home or self-care (01) ==
LOC: JER 18:25
PROC: 3E0F7GC Introduction of Other Therapeutic Substance into Respiratory Tract, Via Natural or Artificial Opening (ICD-10-PCS; principal; 2021-06-23)
DX: J98.01 Acute bronchospasm (principal); R06.09 Other forms of dyspnea; R53.1 Weakness
CPT/HCPCS: 71046-TC-FY; 99284-25; C9803; U0003; U0005

== ENCOUNTER 2021-11-25 11:21 | Emergency (ER) | payer OTHER ==
[2021-11-25 12:04] VITALS: BP 114/65; PULSE 87; TEMP 99.3; BMI 23.0
[2021-11-25] MEDS ORDERED: ACETAMINOPHEN 500 MG TABLET (FP) PO ONE (12:23)
[2021-11-25] MEDS ORDERED: ACETAMINOPHEN 500 MG TABLET (FP) ONE (12:51)
[2021-11-26 18:07] LABS: SARS-CoV-2 NAA Not Detected (Not Detected)
== END 2021-11-25 15:39 | disposition home or self-care (01) ==
LOC: JER 11:21
DX: R07.0 Pain in throat (principal); M79.10 Myalgia, unspecified site; Z11.52 Encounter for screening for COVID-19
CPT/HCPCS: 87804; 99283-25; C9803-CS; U0003; U0005

== ENCOUNTER 2023-07-12 12:21 | Emergency (ER) | payer OTHER ==
[2023-07-12 12:26] VITALS: BP 112/50; PULSE 62; RESP 20; TEMP 98.2; BMI 23.9
[2023-07-12] MEDS ORDERED: LACTATED RINGERS SOLUTION 1000 ML INFUS.BAG IV ONE (12:28)
[2023-07-12] MEDS ORDERED: ONDANSETRON 4 MG/2 ML VIAL IVPUSH ONE (12:28)
[2023-07-12] MEDS ORDERED: ONDANSETRON 4 MG/2 ML VIAL ONE (12:34)
[2023-07-12] MEDS ORDERED: ONDANSETRON 4 MG TABLET PO ONE (12:44)
[2023-07-12] MEDS ORDERED: MECLIZINE HCL 25 MG TABLET (FP) PO ONE (12:46)
[2023-07-12] MEDS ORDERED: MECLIZINE HCL 25 MG TABLET (FP) ONE (12:49)
[2023-07-12] MEDS ORDERED: ONDANSETRON *ODT* 4 MG TABLET ONE (12:49)
== END 2023-07-12 13:06 | disposition home or self-care (01) ==
LOC: JER 12:21
DX: R42 Dizziness and giddiness (principal); R11.2 Nausea with vomiting, unspecified
CPT/HCPCS: 99283-25

== ENCOUNTER 2024-03-12 16:22 | Emergency (ER) | payer SELFPAY ==
[2024-03-12 16:32] VITALS: BP 126/70; PULSE 78; RESP 18; TEMP 98.2; BMI 25.6
[2024-03-12 17:39] LABS: HCG,QUALITATIVE URINE Positive
[2024-03-12 17:41] LABS: URINE APPEARANCE CLEAR; URINE BILIRUBIN NEGATIVE (NEGATIVE); URINE COLOR DK YELLOW; URINE GLUCOSE (UA) NEGATIVE (NEGATIVE); URINE KETONE 1+ (NEGATIVE); URINE LEUK ESTERASE NEGATIVE (NEGATIVE); URINE NITRITE NEGATIVE (NEGATIVE); URINE PROTEIN NEGATIVE (NEGATIVE)
== END 2024-03-12 18:33 | disposition home or self-care (01) ==
LOC: JER 16:22
DX: O21.9 Vomiting of pregnancy, unspecified (principal); Z3A.00 Weeks of gestation of pregnancy not specified; Z20.822 Contact with and (suspected) exposure to COVID-19
CPT/HCPCS: 0241U-QW; 81003; 82962; 84703; 87086; 99283-25

== ENCOUNTER 2024-05-24 12:10 | Emergency (ER) | payer OTHER ==
[2024-05-24 12:20] VITALS: RESP 18; TEMP 98.5; BMI 23.9
[2024-05-24 16:30] LABS: PH,URINE 6.5 (5.0-8.0); URINE APPEARANCE CLOUDY; URINE BILIRUBIN NEGATIVE (NEGATIVE); URINE COLOR YELLOW; URINE GLUCOSE (UA) NEGATIVE (NEGATIVE); URINE KETONE NEGATIVE (NEGATIVE); URINE LEUK ESTERASE 3+ (NEGATIVE); URINE NITRITE NEGATIVE (NEGATIVE); URINE PROTEIN TRACE (NEGATIVE); URINE UROBILINOGEN 0.2 mg/dL (0.2-1.0)
[2024-05-24 16:38] LABS: EPI CELLS 12.7 /uL (0-25.1); HYALINE CASTS 0.58 /uL (0-3.1); URINE BACTERIA 21365.3 /uL (0-1359); URINE RBC 18.2 /uL (0-23.9); URINE WBC 3663.8 /uL (0-25.8)
[2024-05-24] MEDS ORDERED: CEPHALEXIN MONOHYDRATE 500 MG CAPSULE (UD) ONE (17:43)
[2024-05-24] MEDS ORDERED: ACETAMINOPHEN 325 MG TABLET (FP) ONE (17:44)
[2024-05-24] MEDS: CEPHALEXIN MONOHYDRATE 500 MG CAPSULE (UD) PO ONE (17:46)
[2024-05-24] MEDS: ACETAMINOPHEN 325 MG TABLET (FP) PO ONE (17:47)
[2024-05-24 18:12] VITALS: BP 110/77; PULSE 74
== END 2024-05-24 18:14 | disposition home or self-care (01) ==
LOC: JER 12:10
DX: O26.892 Other specified pregnancy related conditions, second trimester (principal); R10.2 Pelvic and perineal pain; O23.42 Unspecified infection of urinary tract in pregnancy, second trimester; Z3A.17 17 weeks gestation of pregnancy
CPT/HCPCS: 76705-TC; 76815-TC; 81003; 87086; 87186; 99284-25

== ENCOUNTER 2024-06-03 07:34 | Emergency (ER) | payer OTHER ==
[2024-06-03 07:43] VITALS: TEMP 97.7; BMI 23.0
[2024-06-03] MEDS: ACETAMINOPHEN 500 MG TABLET (FP) PO ONE (08:40)
[2024-06-03] MEDS ORDERED: ACETAMINOPHEN 500 MG TABLET (FP) ONE (08:43)
[2024-06-03 09:05] LABS: EPI CELLS 4 /uL (0-25.1); HYALINE CASTS 8 /uL (0-3.1); URINE APPEARANCE TURBID; URINE BACTERIA >9,000 /uL (0-1359); URINE BILIRUBIN NEGATIVE (NEGATIVE); URINE COLOR YELLOW; URINE GLUCOSE (UA) NEGATIVE (NEGATIVE); URINE KETONE NEGATIVE (NEGATIVE); URINE LEUK ESTERASE 3+ (NEGATIVE); URINE NITRITE NEGATIVE (NEGATIVE); URINE PROTEIN 3+ (NEGATIVE); URINE UROBILINOGEN 0.2 mg/dL (0.2-1.0); URINE WBC 20333 /uL (0-25.8)
[2024-06-03 09:21] LABS: POTASSIUM 3.9 mmol/L (3.5-5.1)
[2024-06-03 09:24] LABS: ALBUMIN 2.6 g/dl (3.4-5.0); BLOOD UREA NITROGEN 9.1 mg/dL (7-18); CALCIUM 8.1 mg/dL (8.5-10.1)
[2024-06-03 09:26] LABS: BASO % 0.3 % (0-2.0); EOS % 2.5 % (0-4.5); HEMATOCRIT 31.3 % (32.4-45.2); HEMOGLOBIN 10.8 GM/dL (10.7-15.3); LYMPH % 12.7 % (8-40); MCH 30.7 pg (25.7-33.7); MCHC 34.4 g/dl (32.0-36.0); MEAN CELL VOLUME 89.4 fl (80-96); MEAN PLT VOLUME 8.2 fl (7.5-11.1); MONO % 7.6 % (3.8-10.2); NEUT % 76.9 % (42.8-82.8); PLATELET COUNT 270 10^3/uL (134-434); WHITE BLOOD COUNT 11.2 K/mm3 (4.0-10.0)
[2024-06-03 09:28] LABS: CREATININE 0.4 mg/dL (0.55-1.3)
[2024-06-03 09:29] LABS: BILIRUBIN,TOTAL 0.2 mg/dL (0.2-1); TOT PROT 6.4 g/dl (6.4-8.2)
[2024-06-03 09:56] LABS: URINE RBC 461.7 /uL (0-23.9); YEAST NEGATIVE (NEGATIVE)
[2024-06-03 11:04] VITALS: BP 97/50; PULSE 64; RESP 15
== END 2024-06-03 11:04 | disposition home or self-care (01) ==
LOC: JER 07:34
DX: O23.12 Infections of bladder in pregnancy, second trimester (principal); O26.892 Other specified pregnancy related conditions, second trimester; R10.9 Unspecified abdominal pain; Z3A.19 19 weeks gestation of pregnancy
CPT/HCPCS: 36415; 76775-TC; 76815-TC; 80053; 81003; 85025; 87086; 87186; 99284-25

== ENCOUNTER 2024-09-15 08:40 | Emergency (ER) | payer OTHER ==
[2024-09-15 08:46] VITALS: TEMP 98.4; BMI 29.2
[2024-09-15 10:05] VITALS: BP 121/78; PULSE 96; RESP 20
[2024-09-15 11:49] LABS: EPI CELLS >36 /uL (0-25.1); HYALINE CASTS 3 /uL (0-3.1); URINE APPEARANCE CLOUDY; URINE BACTERIA 418 /uL (0-1359); URINE BILIRUBIN NEGATIVE (NEGATIVE); URINE COLOR YELLOW; URINE GLUCOSE (UA) NEGATIVE (NEGATIVE); URINE KETONE 1+ (NEGATIVE); URINE LEUK ESTERASE 2+ (NEGATIVE); URINE NITRITE NEGATIVE (NEGATIVE); URINE PROTEIN TRACE (NEGATIVE); URINE RBC 10 /uL (0-23.9); URINE WBC 42 /uL (0-25.8)
[2024-09-15] MEDS ORDERED: ACETAMINOPHEN 325 MG TABLET (FP) ONE (12:06)
[2024-09-15] MEDS: ACETAMINOPHEN 325 MG TABLET (FP) PO ONE (12:09)
[2024-09-15 12:42] LABS: THROAT:GRP A STREP NOT DETECTED (NOTDETECTED)
== END 2024-09-15 13:51 | disposition home or self-care (01) ==
LOC: JER 08:40
DX: O23.13 Infections of bladder in pregnancy, third trimester (principal); Z3A.32 32 weeks gestation of pregnancy; Z20.822 Contact with and (suspected) exposure to COVID-19
CPT/HCPCS: 0241U-QW; 81003; 87086; 87651; 99283-25

== ENCOUNTER 2024-11-02 11:00 | Inpatient (IN) | payer OTHER ==
[2024-11-02] MEDS: ELECTROLYTE-148 SOLN 1,000 ML IV SCH (12:00)
[2024-11-02 12:14] LABS: BASO % 0.4 % (0-2.0); EOS % 2.4 % (0-4.5); HEMATOCRIT 32.8 % (32.4-45.2); HEMOGLOBIN 10.8 GM/dL (10.7-15.3); LYMPH % 18.3 % (8-40); MCH 26.6 pg (25.7-33.7); MCHC 32.8 g/dl (32.0-36.0); MEAN PLT VOLUME 8.9 fl (7.5-11.1); MONO % 7.5 % (3.8-10.2); NEUT % 71.4 % (42.8-82.8); PLATELET COUNT 278 10^3/uL (134-434); RBC 4.05 M/mm3 (3.60-5.2); RDW 13.1 % (11.6-15.6); WHITE BLOOD COUNT 11.3 K/mm3 (4.0-10.0)
[2024-11-02 12:33] LABS: CHLORIDE 107 mmol/L (98-107); POTASSIUM 3.8 mmol/L (3.5-5.1); SODIUM 137 mmol/L (136-145)
[2024-11-02 12:35] LABS: ANION GAP 8 mmol/L (4-13); BLOOD UREA NITROGEN 7.4 mg/dL (7-18); CO2 22 mmol/L (21-32); GLUCOSE,RANDOM 70 mg/dL (74-106)
[2024-11-02 12:38] LABS: CREATININE 0.6 mg/dL (0.55-1.3)
[2024-11-02 12:42] LABS: INR 0.95 (0.83-1.09); PROTHROMBIN TIME (PATIENT) 10.8 SEC (9.7-13.0)
[2024-11-02 12:45] LABS: ACTIVATED PTT 26.4 SECONDS (25.2-36.5)
[2024-11-02 12:59] VITALS: BMI 31.1
[2024-11-02] MEDS ORDERED: FENTANYL/BUPIVACAINE/NS/PF - PCEA - 50 ML DISP.SYRIN EP ONE ×2 (20:03→23:43)
[2024-11-02] MEDS ORDERED: NALOXONE HCL 0.4 MG/ML VIAL IVPUSH PRN (20:20)
[2024-11-02] MEDS ORDERED: OXYTOCIN 20 UNITS in 0.9% NS 20 UNIT/1,000 ML INFUS.BAG IV ONE (20:32)
[2024-11-02] MEDS ORDERED: FENTANYL CITRATE/PF 50 MCG/ML VIAL ONE (20:40)
[2024-11-02] MEDS ORDERED: BUPIVACAINE HCL/PF 0.25% (2.5MG/ML) 10 ML VIAL ONE (20:40)
[2024-11-02] MEDS: FENTANYL/BUPIVACAINE/NS/PF - PCEA - 50 ML DISP.SYRIN EP SCH (20:50)
[2024-11-03] MEDS ORDERED: FENTANYL CITRATE/PF 50 MCG/ML VIAL ONE (00:45)
[2024-11-03] MEDS ORDERED: BUPIVACAINE HCL/PF 0.25% (2.5MG/ML) 10 ML VIAL ONE (00:45)
[2024-11-03] MEDS ORDERED: FENTANYL/BUPIVACAINE/NS/PF - PCEA - 50 ML DISP.SYRIN EP ONE (03:17)
[2024-11-03] MEDS: OXYTOCIN 20 UNITS in 0.9% NS 20 UNIT/1,000 ML INFUS.BAG IV SCH (03:33)
[2024-11-03] MEDS: METHYLERGONOVINE MALEATE 0.2 MG/1 ML AMP IM PRN (03:49)
[2024-11-03] MEDS ORDERED: oxyCODONE HCL 5 MG TABLET PO PRN (03:58)
[2024-11-03] MEDS ORDERED: WITCH HAZEL 50% (TUCKS) 40 PAD/JAR PAD TP PRN (03:58)
[2024-11-03] MEDS ORDERED: BENZOCAINE 28 GM HEMORRHOIDAL OINTMENT TP PRN (03:58)
[2024-11-03] MEDS ORDERED: BISACODYL 10 MG SUPP.RECT RC PRN (03:58)
[2024-11-03] MEDS ORDERED: BENZOCAINE 20% 57 GM BOTTLE TP PRN (03:58)
[2024-11-03 04:38] LABS: CORD BASE EXCESS -5.5 mmol/L (0-2); CORD BASE EXCESS -6.9 mmol/L (0-2); CORD HCO3 20.4 mmHg (20-29); CORD HCO3 21.3 mmHg (20-29); CORD PCO2 41.4 mmHg (30-78); CORD PCO2 52.6 mmHg (30-78); CORD pH 7.226 (7.14-7.44); CORD pH 7.311 (7.14-7.44)
[2024-11-03] MEDS ORDERED: ACETAMINOPHEN 325 MG TABLET (FP) ONE (04:55)
[2024-11-03] MEDS: ACETAMINOPHEN 325 MG TABLET (FP) PO PRN (04:57)
[2024-11-03] MEDS: IBUPROFEN 600 MG TABLET (FP) PO PRN (06:14)
[2024-11-03] MEDS: METHYLERGONOVINE MALEATE 0.2 MG TABLET (FP) PO SCH (09:30)
[2024-11-03] MEDS: PRENATAL VITAMINS W/ FOLIC ACID TABLET (FP) PO SCH (09:30)
[2024-11-04 07:00] LABS: BASO % 0.3 % (0-2.0); EOS % 3.5 % (0-4.5); HEMOGLOBIN 9.2 GM/dL (10.7-15.3); MCH 26.9 pg (25.7-33.7); MCHC 32.9 g/dl (32.0-36.0); MEAN CELL VOLUME 81.8 fl (80-96); MEAN PLT VOLUME 8.9 fl (7.5-11.1); NEUT % 60.2 % (42.8-82.8); PLATELET COUNT 217 10^3/uL (134-434); RBC 3.43 M/mm3 (3.60-5.2); WHITE BLOOD COUNT 8.6 K/mm3 (4.0-10.0)
[2024-11-04] MEDS ORDERED: SENNOSIDES/DOCUSATE COMBO (SENNA PLUS) TABLET (UD) PO PRN (22:00)
[2024-11-05 08:05] VITALS: RESP 16
[2024-11-05 08:07] VITALS: BP 107/69; PULSE 59; TEMP 98
== END 2024-11-05 15:34 | disposition home or self-care (01) | DRG 807 ==
LOC: JLDR 11:00 → J3W 11-03 05:53
PROVIDERS: ADMIT Specialist; ATTEND Specialist
PROC: 10E0XZZ Delivery of Products of Conception, External Approach (ICD-10-PCS; principal; 2024-11-03)
DX: O42.92 Full-term premature rupture of membranes, unspecified as to length of time between rupture and onset of labor (principal); Z37.0 Single live birth; O48.0 Post-term pregnancy; Z3A.40 40 weeks gestation of pregnancy
CPT/HCPCS: 36415; 36600; 59409; 80048; 82803; 85025; 85610; 85730; 86780; 86850; 86900; 86901